=== PATIENT | female | born 1965 | race Caucasian/White ===

== ENCOUNTER 2019-10-03 13:42 | Outpatient (CLI) | payer OTHER, SELFPAY | END 2019-10-03 13:43 | disposition home or self-care (01) | LOC: ANHAUDIO 13:43 | DX: H90.3 Sensorineural hearing loss, bilateral (principal) | CPT/HCPCS: 92557; 92567 ==

== ENCOUNTER 2020-01-19 16:08 | Emergency (ER) | payer OTHER, SELFPAY ==
--- NOTE | ~2020-01-19 | XR_ITS ---
EXAMINATION: XR knee LT min 4V DATE: 01/19/2020 18:45 INDICATION: Left knee pain TECHNIQUE: Four views of the left knee were obtained. COMPARISON: None. FINDINGS: Alignment is normal. No fracture or osteochondral lesion. There is mild tricompartmental os teoarthritis characterized by tiny marginal osteophytes. No joint effusion/synovitis. Soft tissues a re unremarkable. IMPRESSION: 1. No acute osseous abnormality. Reviewed, dictated and finalized at location A.
[2020-01-19 16:21] VITALS: BP 116/91; PULSE 70; RESP 16; TEMP 36.8; O2SAT 96
--- NOTE | 2020-01-19 17:22 | ED.GENADULT ---
HPI - General Adult General Chief complaint: Extremity Injury, Lower Stated complaint: left leg swelling and pain Time Seen by Provider: 01/19/20 16:39 Source: patient Mode of arrival: ambulatory Limitations: no limitations History of Present Illness HPI narrative: 54-year-old female patient presents to the [facility] with complaints of left leg pain and swelling for the past week and a half. Patient states that 3 weeks ago and she did see her primary doctor and they did an x-ray of her knee and he stated that it was most likely arthritis that was causing the pain. Primary doctor gave her a brace and encouraged her to treated as appropriately for arthritis. Patient states she does take hydrocodone daily for neuropathy and other chronic pain which she states that has not helped with the pain at all. Patient states that she noticed that the swelling to the left lower leg is increasing and states that it hurts worse when trying to stand or walk on it. Patient states most of her pain is the calf area of the left leg. Patient denies any history of DVTs. Patient states she is currently not on blood thinners. Patient does currently smoke. Related Data Home Medications Medication Instructions Recorded Confirmed hydrocodone 10 mg-acetaminophen 1 tablet PO Q6H PRN 07/03/19 325 mg tablet citalopram 40 mg tablet 40 mg PO DAILY 07/11/19 aspirin 81 mg PO DAILY 01/19/20 lamotrigine 100 mg PO HS 01/19/20 pregabalin 150 mg PO BID 01/19/20 tizanidine 2 mg PO BID 01/19/20 zolpidem 10 mg PO HS 01/19/20 Allergies Allergy/AdvReac Type Severity Reaction Status Date / Time morphine Allergy Unknown headache Verified 01/19/20 16:29 Review of Systems Review of Systems: Narrative: CONSTITUTIONAL: Denies fever, chills, or sweats. EYES: Denies visual changes, redness, or discharge. ENT: Denies rhinorrhea, congestion, sore throat, or otalgia. CARDIOVASCULAR: Denies chest pain, palpitations, or edema. RESPIRATORY: Denies cough or dyspnea. GASTROINTESTINAL: Denies abdominal pain, nausea, vomiting, or diarrhea. GENITOURINARY: Denies dysuria or hematuria. SKIN: Denies rash or itching. MUSCULOSKELETAL: Denies back pain, joint pain, or myalgia. Positive left lower extremity pain x1.5 weeks NEUROLOGIC: Denies headache, numbness, or weakness. PSYCHIATRIC: Denies anxiety or depression. [facility] Past Medical History Medical History (Updated 01/19/20 @ 19:44 by BELLO Lang) Anxiety Arthritis Bronchitis COPD (chronic obstructive pulmonary disease) Depression Diabetes GERD (gastroesophageal reflux disease) Peripheral neuropathy Shingles TIA (transient ischemic attack) Surgical History Surgical History (Updated 01/19/20 @ 17:24 by BELLO Lang) H/O tubal ligation History of appendectomy History of cholecystectomy Hx of tonsillectomy Family History Family History Father Hypertension Mother Family history of malignant melanoma Other Diabetes mellitus Family history of kidney disease Family history of tuberculosis Social History Social History Smoking status: Current every day smoker Alcohol intake: current Gender identity (if verbalized by the patient): Female Comments At the time of my signature I agree with nursing past medical history, surgical, social, and family history. There is no relevant family history pertinent to the presenting complaint. Exam Narrative: Exam Narrative: GENERAL: Well-appearing, well-nourished, and in no acute distress. HEAD: Normocephalic, atraumatic. EYES: PERRLA and EOMI. ENT: Nares clear, no rhinorrhea or epistaxis. Mucous membranes moist. NECK: Supple. No lymphadenopathy CHEST: Clear to auscultation. No respiratory distress. HEART: Regular rate and rhythm. No murmur heard. Normal peripheral pulses. ABDOMEN: Soft, nontender, nondistended, normal active bowel
[2020-01-19 17:45] LABS: Basophils Absolute Auto 0.1 K/mm3 (0.0-0.1); Basophils Percent Auto 0.4 % (0.2-1.2); Eosinophils Absolute Auto 0.1 K/mm3 (0-0.3); Eosinophils Percent Auto 0.7 % (0-4.4); Hematocrit 45.4 % (37.0-47.0); Hemoglobin 14.8 g/dL (12.0-15.0); Immature Granulocyte Absolute 0.09 K/mm3 (0.00-0.031); Immature Granulocyte Percent A 0.5 % (0-0.5); Lymphocytes Absolute Auto 4.76 K/mm3 (0.9-3.2); Mean Corpuscular HGB Conc 32.6 g/dl (32-36); Mean Corpuscular Hemoglobin 32.7 pg (26-34); Mean Corpuscular Volume 100.4 fl (80-100); Mean Platelet Volume 9.9 fl (7.4-10.4); Monocytes Absolute Auto 0.9 K/mm3 (0.1-0.6); Monocytes Percent Auto 5.2 % (2.6-8.5); Neutrophils Absolute Auto 11.7 K/mm3 (1.3-6.7); Neutrophils Percent Auto 66.2 % (45.5-73.1); Platelet Count Result 276 k/mm3 (150-375); Red Blood Count 4.52 M/mm3 (4.2-5.4); Red Cell Distribution Width 14.1 % (11.5-14.5); White Blood Count 17.6 K/mm3 (4.5-10.0)
[2020-01-19 17:53] LABS: Prothrombin Time 12.5 Seconds (11.1-14.7)
[2020-01-19 17:54] LABS: Partial Thromboplastin Time 27.4 SECONDS (22.3-36.8)
[2020-01-19 17:56] LABS: Alanine Aminotransferase 15 U/L (4-35); Albumin Level 4.1 g/dL (3.5-5.1); Alkaline Phosphatase 70 U/L (38-126); Aspartate Amino Transferase 20 U/L (14-36); Bilirubin,Total < 0.1 mg/dL (0.2-1.3); Blood Urea Nitrogen 24 mg/dL (7-17); Calcium 8.7 mg/dL (8.4-10.2); Carbon Dioxide 30 mmol/L (22-30); Chloride 102 mmol/L (98-107); Estimated CRCL calculation 89 ml/min; Estimated Glomerular Filt Rate > 60; Glucose 102 mg/dL (65-105); Potassium 4.4 mmol/L (3.4-5.0); Sodium 136 mmol/L (137-145)
[2020-01-19 18:28] LABS: D Dimer 0.79 ug/mL (<0.48)
[2020-01-19 18:53] LABS: Lactic Acid 0.9 mmol/L (0.7-2.1)
[2020-01-19] MEDS: SODIUM CHLORIDE 0.9% IV 1,000 ML 999 ML IV CONT (19:02)
[2020-01-19 19:15] LABS: CRP 1.8 mg/dL (<1.0)
[2020-01-19 19:31] LABS: Erythrocyte Sedimentation Rate 15 mm/hr (0-20)
[2020-01-19] MEDS: ENOXAPARIN 100 MG/ML SYRINGE 93 MG SUB-Q (20:28)
[2020-01-19 20:29] VITALS: BP 125/75; PULSE 60; RESP 14; O2SAT 100
[2020-01-19 20:59] VITALS: BP 125/75; PULSE 60; RESP 14; O2SAT 100
== END 2020-01-19 20:28 | disposition home or self-care (01) ==
PROVIDERS: Emergency Provider Nurse Practitioner Family
DX: M79.605 Pain in left leg (principal); F41.9 Anxiety disorder, unspecified; M19.90 Unspecified osteoarthritis, unspecified site; J44.9 Chronic obstructive pulmonary disease, unspecified; F32.9 Major depressive disorder, single episode, unspecified; K21.9 Gastro-esophageal reflux disease without esophagitis; E11.42 Type 2 diabetes mellitus with diabetic polyneuropathy; Z86.73 Personal history of transient ischemic attack (TIA), and cerebral infarction without residual deficits; Z79.82 Long term (current) use of aspirin; F17.200 Nicotine dependence, unspecified, uncomplicated; R03.0 Elevated blood-pressure reading, without diagnosis of hypertension
CPT/HCPCS: 36415; 73564; 80053; 83605; 85025; 85380; 85610; 85652; 85730; 86140; 87040; 96361; 96372; 96374; 99284; J1650; J3010; J7030

== ENCOUNTER 2020-01-20 07:11 | Outpatient (CLI) | payer OTHER, SELFPAY ==
--- NOTE | ~2020-01-20 | US_ITS ---
EXAMINATION: US venous doppler [facility] EXAM DATE: 01/20/2020 07:59 INDICATION: Left leg pain and swelling. TECHNIQUE: Multiple grayscale, color flow and Doppler images of the left lower extremity deep venous system were obtained and reviewed. Comparison is made to prior examination from 08/10/2018. FINDINGS: The left common femoral, femoral and profunda veins demonstrate normal color flow, respirat ory variation, augmentation and compressibility. Compressibility, color flow confirmed within the le ft popliteal, posterior tibial, peroneal, and greater saphenous veins. Complex cystic structure in p opliteal fossa probably Pascual's cyst cyst measuring 5.9 x 1.5 x 3.6 cm, with another contiguous conne cted lobulation more distally, similar in size. IMPRESSION: 1. No left lower extremity deep venous thrombosis. 2. Large popliteal fossa complex cystic region probably Pascual's cyst extending inferiorly to the jatin f. Reviewed, dictated and finalized at location A. IMPRESSION: 1. No left lower extremity deep venous thrombosis. 2. Large popliteal fossa complex cystic region probably Pascual's cyst extending inferiorly to the calf.
== END 2020-01-20 07:12 | disposition home or self-care (01) ==
PROVIDERS: Visit Provider Nurse Practitioner Family
DX: M79.89 Other specified soft tissue disorders (principal)
CPT/HCPCS: 93971

== ENCOUNTER 2020-05-11 00:33 | Inpatient (IN) | payer OTHER, SELFPAY ==
[2020-05-11] VITALS (20 sets, daily range): BP systolic 94–119; BP diastolic 46–76; PULSE 55–85; RESP 14–23; TEMP 36.1–36.9; O2SAT 91–100; BMI 35.2
--- NOTE | ~2020-05-11 | CT_ITS ---
EXAMINATION: Mone Martel DATE: 05/11/2020 02:51 INDICATION: Right chest pain. Right flank pain. TECHNIQUE: Computed tomographic angiography (CTA) of the chest, abdomen, and pelvis was performed wit hout and with 100 mL Omnipaque-350 intravenous contrast. The dose-length product was 1334.18 mGy-cm. Maximum intensity projection 3D-reconstructions of the aorta and other arteries were constructed by carlos houston technologist on a separate workstation. COMPARISON: Chest CT 07/23/2019, CT abdomen and pelvis 09/23/2015 FINDINGS: CHEST CTA: There is air trapping in right middle lobe. There are chronic interstitial opacities in the lungs con sistent with faint groundglass opacities, worst in right upper lobe. There are airspace opacities and centrilobular nodules and tree-in-bud opacities in the right lower lobe. There are airspace opacitie s in right middle lobe. There is a trace right pleural effusion. There is right hilar and mediastinal lymphadenopathy. For example, a right paratracheal node measures 3.1 x 2.0 cm. There is no pulmonary embolus. There is mild aortic atherosclerosis. There is a small sliding hiatal hernia. There is mild thoracic spondylosis. ABDOMEN AND PELVIS CTA: There is a 5 mm hyperenhancing mass in segment VIII of the liver, likely benign. There are changes of cholecystectomy. The spleen is normal. Pancreas divisum is noted. The adrenal glands and left kidney are normal. There is a 3 mm stone in right kidney with mild focal parenchymal volume loss. There are no dilated loops of bowel. The appendix is not visualized. There is mild aortic atherosclerosis. The re is no significant stenosis of the renal arteries or superior mesenteric artery or celiac axis. The re is moderate lumbar spondylosis. IMPRESSION: 1. Right lower lobe and right middle lobe pneumonia. 2. Worsened right hilar and mediastinal lymphadenopathy, likely reactive. 3. Chronic lung disease, which may be chronic hypersensitivity pneumonitis. 4. Mild aortic atherosclerosis. No aneurysm or dissection. 5. No pulmonary embolus. Reviewed, dictated and finalized at location A.
--- NOTE | ~2020-05-11 | CT_ITS ---
EXAMINATION: CT brain wo con EXAM DATE: 05/12/2020 20:19 INDICATION: Confusion. TECHNIQUE: Spiral CT of the head was performed without contrast. Axial, coronal and sagittal images were reviewed. The dose-length product (DLP) for this examination was 605.33 mGy-cm. The exposure w as tailored according to patient size, and iterative reconstruction (ASIR) was used as additional dos e reduction technique. Comparison is made to prior examination from 09/03/2014. FINDINGS: There is no acute intraparenchymal hemorrhage. No evidence of intraparenchymal brain mass lesion. No evidence of acute infarction. There is no mass effect or midline shift. The ventricles are normal in size. There are no extra-axial collections. There are no acute calvarial fractures. T he orbits are unremarkable. Soft tissue is unremarkable. The visualized sinuses and mastoid air to ls are well aerated. IMPRESSION: 1. No acute intracranial findings. Reviewed, dictated and finalized at location A.
--- NOTE | 2020-05-11 00:40 | ED.ABDPAIN ---
HPI - Abdominal Pain General Chief Complaint: Abdominal Pain Stated Complaint: abd pain Source: patient and EMS Mode of arrival: EMS Limitations: no limitations History of Present Illness HPI narrative: Patient is a 54-year-old female who presents for evaluation of abdominal pain. Patient reports pain in her right abdomen radiating to the right flank with associated right-sided chest pain, right-sided neck pain, right-sided back pain. She reports pain over the past 4 days and worsening. Patient reports associated nausea without vomiting. She denies abdominal distention. She does report history of constipation but did have a normal bowel movement yesterday. Patient denies fever, chills. He does report productive cough.she has been having some intermittent shortness of breath. No pleuritic pain. Pain on the right side of the chest is dull, aching in nature. No associated diaphoresis, jaw pain. Patient denies rhinorrhea or congestion. She denies sore throat. Patient is also reporting some urinary incontinence which is new for her. She is denying any dysuria or frequency. States she does not typically have issues with this. Related Data Home Medications Medication Instructions Recorded Confirmed hydrocodone 10 mg-acetaminophen 1 tablet PO Q6H PRN 07/03/19 325 mg tablet citalopram 40 mg tablet 40 mg PO DAILY 07/11/19 aspirin 81 mg PO DAILY 01/19/20 lamotrigine 100 mg PO HS 01/19/20 pregabalin 150 mg PO BID 01/19/20 tizanidine 2 mg PO BID 01/19/20 Allergies Allergy/AdvReac Type Severity Reaction Status Date / Time morphine Allergy Unknown headache Verified 01/19/20 16:29 Review of Systems Review of Systems: Narrative: CONSTITUTIONAL: Denies fever, chills, or sweats. ENT: Denies rhinorrhea, congestion, sore throat, or otalgia. CARDIOVASCULAR: Reports right-sided chest pain RESPIRATORY: Patient reports cough and intermittent shortness of breath GASTROINTESTINAL: Reports right-sided abdominal pain, constipation GENITOURINARY: Denies dysuria or hematuria. Reports urinary incontinence. SKIN: Denies rash or itching. MUSCULOSKELETAL: Reports right-sided back pain and flank pain NEUROLOGIC: Denies headache, numbness, or weakness. [facility] Past Medical History Medical History Anxiety Arthritis Bronchitis COPD (chronic obstructive pulmonary disease) Depression Diabetes GERD (gastroesophageal reflux disease) Peripheral neuropathy Shingles TIA (transient ischemic attack) Surgical History Surgical History H/O tubal ligation History of appendectomy History of cholecystectomy Hx of tonsillectomy Family History Family History Father Hypertension Mother Family history of malignant melanoma Other Diabetes mellitus Family history of kidney disease Family history of tuberculosis Social History Social History Smoking status: Current every day smoker Alcohol intake: current Gender identity (if verbalized by the patient): Female Exam Narrative: Exam Narrative: GENERAL: Awake, alert, tearful HEAD: Normocephalic, atraumatic. EYES: 2+ PERRLA and EOMI. ENT: Nares clear, no rhinorrhea or epistaxis. Mucous membranes moist. NECK: Supple. CHEST: No respiratory distress, breathing even and non labored, right-sided chest wall tenderness, coarse breath sounds bilaterally HEART: Regular rate, sinus rhythm ABDOMEN: Obese, nondistended, tender in the right middle abdomen, positive guarding, nonrigid, right flank tenderness EXTREMITIES: Normal range of motion. No edema. SKIN: Warm, dry, no rash. NEURO:No focal deficits. Alert and oriented x3 Course Vital Signs Vital signs: Vital Signs Temperature 36.9 C 05/11/20 00:33 Pulse Rate 85 05/11/20 00:33 Respiratory Rate 21 H 05/11/20 00
--- NOTE | 2020-05-11 00:42 | ECG_ITS ---
Measurements Intervals [place] Rate: 84 P: 71 PA: 135 QRS: 85 QRSD: 93 T: 62 QT: 354 QTc: 419 Interpretive Statements SINUS RHYTHM BASELINE WANDER- I, II, AVR, AVL, AVF, V2-V3 NORMAL ECG Electronically Signed On 05-11-2020 8:00:19 CDT by Vinicius Wynne D.O.
[2020-05-11 01:25] LABS: Basophils Absolute Auto 0.1 K/mm3 (0.0-0.1); Basophils Percent Auto 0.4 % (0.2-1.2); Eosinophils Absolute Auto 0.2 K/mm3 (0-0.3); Eosinophils Percent Auto 0.9 % (0-4.4); Hematocrit 45.2 % (37.0-47.0); Hemoglobin 14.9 g/dL (12.0-15.0); Immature Granulocyte Absolute 0.11 K/mm3 (0.00-0.031); Immature Granulocyte Percent A 0.6 % (0-0.5); Lymphocytes Absolute Auto 3.75 K/mm3 (0.9-3.2); Lymphocytes Percent Auto 20.6 % (18.3-44.2); Mean Corpuscular Hemoglobin 32.7 pg (26-34); Mean Corpuscular Volume 99.3 fl (80-100); Mean Platelet Volume 9.9 fl (7.4-10.4); Monocytes Absolute Auto 1.4 K/mm3 (0.1-0.6); Monocytes Percent Auto 7.4 % (2.6-8.5); Neutrophils Absolute Auto 12.8 K/mm3 (1.3-6.7); Neutrophils Percent Auto 70.1 % (45.5-73.1); Platelet Count Result 258 k/mm3 (150-375); Red Blood Count 4.55 M/mm3 (4.2-5.4); Red Cell Distribution Width 13.1 % (11.5-14.5); White Blood Count 18.2 K/mm3 (4.5-10.0)
[2020-05-11 01:36] LABS: Alanine Aminotransferase 12 U/L (4-35); Albumin Level 3.9 g/dL (3.5-5.1); Alkaline Phosphatase 78 U/L (38-126); Anion Gap 3 mmol/L (8-16); Aspartate Amino Transferase 17 U/L (14-36); Bilirubin,Total 0.4 mg/dL (0.2-1.3); Blood Urea Nitrogen 12 mg/dL (7-17); Calcium 9.1 mg/dL (8.4-10.2); Carbon Dioxide 32 mmol/L (22-30); Chloride 103 mmol/L (98-107); Estimated CRCL calculation 105 ml/min; Estimated Glomerular Filt Rate > 60; Glucose 99 mg/dL (65-105); Lipase 32 U/L (23-300); Potassium 3.8 mmol/L (3.4-5.0); Sodium 138 mmol/L (137-145)
[2020-05-11] MEDS: HYDROmorphone HCL INJ (*CRX) 1 MG/ML SYR 0.5 MG IV PUSH (02:19)
[2020-05-11] MEDS: ONDANSETRON INJ 4 MG/2 ML VIAL IV PUSH (02:19)
[2020-05-11] MEDS: SODIUM CHLORIDE 0.9% IV 1,000 ML 999 ML IV CONT ×2 (02:21→03:00)
[2020-05-11 02:35] LABS: INR 1.1; Prothrombin Time 13.5 Seconds (11.1-14.7)
[2020-05-11 02:40] LABS: Troponin I < 0.012 ng/mL (0.000-0.034)
--- NOTE | 2020-05-11 02:41 | PC.NURSE ---
Patient to radiology
[2020-05-11 02:55] LABS: Add Urine Microscopic? YES; Appearance Urine Clear (Clear); Bilirubin Urine Negative (Negative); Blood Urine 1+ (Negative); Color Urine Straw (Yellow); Glucose Urine UA Negative (Negative); Ketones Urine Negative (Negative); Leukocyte Esterase Ur Negative LEU/UL (Negative); Nitrate Urine Negative (Negative); Protein Urine Negative (Negative); Specific Grav Ur 1.011 (1.001-1.035); Squamous Epithelial Cell Urine Rare /hpf (Few); Urobilinogen Urine Negative mg/dL (<2.0); WBC Urine 0-3 /hpf
[2020-05-11 02:56] LABS: Lactic Acid Reflex 1.1 mmol/L (0.7-2.1)
[2020-05-11 03:37] LABS: Alveolar/Arterial O2 Gradient 34.8 mmHg; Base Excess ABG 0.8 mEq/l (+/-2.0); Carboxyhemoglobin 7.5 % THb (0-2.0); Fractional Inspired Oxygen 21 %; HCO3 ABG 26.8 mEq/l (22.0-26.0); Methemoglobin ABG 0.1 %THb (0-1.5); Oxygen Content ABG 16.8 %vol (16.0-22.0); Oxygen Saturation ABG 88.8 % (95.0-100.0); Oxyhemoglobin 84.3 % THb (90.0-100.0); PO2 ABG 57.5 mmHg (80.0-100.0); PO2 FiO2 Ratio Arterial Blood 2.74 %; Reduced Hemoglobin 8.1 %THb (0-5.0); Total Hemoglobin 14.2 g/dL (12.0-18.0); pH ABG 7.365 (7.350-7.450)
[2020-05-11 03:38] LABS: Device ROOM AIR; Modified Allen's Test Pass; Site Drawn LEFT RADIAL
--- NOTE | 2020-05-11 03:56 | PC.NURSE ---
Patient placed on 2L via NC.
[2020-05-11] MEDS: ASPIRIN 81 MG CHEWABLE TABLET 324 MG PO (04:04)
--- NOTE | 2020-05-11 04:36 | PM.IMHP ---
H&P: HPI History of Present Illness Date/Time: 05/11/20 04:36 Chief complaint: Pneumonia, atypical chest pain Narrative: This is a pleasant 54 year old Diabetic female with known COPD and chronic smoker who presented to the hospital with a complaint of pain of the right side of her body including her right abdomen/chest over the past 4 days and worsening tonight. Associated symptoms include nausea, a productive cough, and shortness of breath. She denies any left sided chest pain. She denies any fever or chills. She also denies any sick contacts. She uses oxygen at night with her CPAP. Routine labs were obtained which demonstrated an elevated WBC of 18,200. ABG demonstrated hypoxemia with a pO2 of 57.5. CTA chest/abd/pelvis demonstrated interval development of nodular airspace consolidations in the right lower lobe and right middle lobe most likely representing pneumonia. The patient was swabbed for coronavirus and treated with antibiotics. Review of Systems Review of Systems: All systems reviewed & are unremarkable except as noted in HPI and below PMFSH Past Medical History Medical History Anxiety Arthritis Bronchitis COPD (chronic obstructive pulmonary disease) Depression Diabetes GERD (gastroesophageal reflux disease) CRISTY (obstructive sleep apnea) Peripheral neuropathy Shingles TIA (transient ischemic attack) Surgical History Surgical History H/O tubal ligation History of appendectomy History of cholecystectomy Hx of tonsillectomy Family History Family History Father Hypertension Mother Family history of malignant melanoma Other Diabetes mellitus Family history of kidney disease Family history of tuberculosis Social History Social History Social History: recently quit smoking since hospitalization Smoking packs per day: 0.5 Smoking cigarettes per day: 10.0 Years smoked: 38 Smoking pack-years: 19.00 Smoking status: Former smoker (quit 5 days ago) Tobacco type: cigarettes Alcohol intake: former Substance use: never Gender identity (if verbalized by the patient): Female Spiritual care concerns: No Meds Home Medications and Allergies Home Medications Medication Instructions Recorded Confirmed Type hydrocodone 10 mg-acetaminophen 1 tablet PO Q6H PRN 07/03/19 05/15/20 History 325 mg tablet albuterol sulfate 0.63 mg/3 mL 0.63 mg INHALATION Q4-6H PRN #90 ml 07/11/19 05/15/20 Rx solution for nebulization citalopram 40 mg tablet 40 mg PO DAILY 07/11/19 05/15/20 History ipratropium bromide 0.02 % 2.5 ml INHALATION Q6H PRN #150 ml 12/13/19 05/15/20 Rx solution for inhalation aspirin 81 mg PO DAILY 01/19/20 05/15/20 History lamotrigine 100 mg PO HS 01/19/20 05/15/20 History pregabalin 150 mg PO BID 01/19/20 05/15/20 History tizanidine 2 mg PO BID 01/19/20 05/15/20 History zolpidem 10 mg tablet 10 mg PO HS 30 Days #30 tablet 03/04/20 05/15/20 Rx alprazolam 0.5 mg PO DAILY PRN 05/11/20 05/15/20 History baclofen 10 mg PO BID 05/11/20 05/15/20 History omeprazole 40 mg PO BID 05/11/20 05/15/20 History levofloxacin 750 mg PO DAILY #30 tablet 05/13/20 05/15/20 Rx Allergies Allergy/AdvReac Type Severity Reaction Status Date / Time morphine Allergy Unknown headache Verified 05/15/20 08:34 Vital Signs Vital Signs - 24 hr 05/11/20 00:33 05/11/20 01:31 05/11/20 02:49 Temperature 36.9 C 36.9 C Pulse Rate 85 78 Respiratory Rate 21 H 22 H Blood Pressure 108/66 102/51 L Pulse Oximetry 100 96 05/11/20 02:51 05/11/20 02:53 05/11/20 03:46 Temperature 36.9 C 36.7 C Pulse Rate 80 73 Respiratory Rate 23 H 19 Blood Pressure 119/69 102/46 L Pulse Oximetry 94 94 Exam Const: General: cooperative, alert, awake and ill appearing Nutritiona
[2020-05-11] MEDS: SODIUM CHLORIDE 0.9% IV 1,000 ML 75 ML IV CONT (05:32)
--- NOTE | 2020-05-11 05:49 | ADMGEN ---
This patient, Sharla Jones, was admitted to Intensive Care Unit-4. Patient/family oriented to hospital policies and general routines including ID bracelet, bed and alarms, visiting hours, pain management, procedures, bathroom and other care routines, personal items, smoking policy, room service/diet, and visiting hours. Information on how to activate the Rapid Response Team has been discussed. Patient/Family are encouraged to report perceived risks to care and to ask questions if they do not understand what they are told or what they should do.
[2020-05-11 05:57] LABS: Troponin I < 0.012 ng/mL (0.000-0.034)
[2020-05-11] MEDS: ALBUTEROL SULFATE (*SP) AEROSOL 1 PUFF 2 PUFF INHALATION ×4 (09:38→20:56)
[2020-05-11 10:38] LABS: Influenza Control Positive
--- NOTE | 2020-05-11 10:45 | PM.IMPN ---
Progress Note: A&P Assessment and Plan (1) Acute respiratory failure with hypoxia: Code(s): J96.01 - Acute respiratory failure with hypoxia Status: Acute Assessment and Plan: On admission, ABG showing PO2 57 on room air. Related to the pneumonia. Patient remains stable on 2 L nasal cannula. Wean oxygen as tolerated. (2) Pneumonia: Qualifiers: Laterality: unspecified laterality Lung location: unspecified part of lung Pneumonia type: due to unspecified organism Qualified Code(s): J18.9 - Pneumonia, unspecified organism Code(s): J18.9 - Pneumonia, unspecified organism Status: Acute Assessment and Plan: CT Chest showing RLL and RML pneumonia with worsened right hilar and mediastinal lymphadenopathy, likely reactive. WBC 18K. Lactic acid normal. Started on Rocephin and Azithromycin. Continue Albuterol. Wean O2 as tolerated. Follow up on blood and sputum cx. (3) Atypical chest pain: Code(s): R07.89 - Other chest pain Status: Acute Assessment and Plan: Likely secondary to pneumonia. Troponin negative. EKG reviewed personally showing no acute findings. Doubt acute coronary syndrome. (4) Suspected 2019 novel coronavirus infection: Code(s): Z20.828 - Contact with and (suspected) exposure to other viral communicable diseases Status: Acute Assessment and Plan: The patient has been swab for Coronavirus. Continue droplet isolation. She was started on Dexamethasone 6 mg IV daily. Continue bronchodilators. Continue supportive care. Stop IV fluids. (5) Diabetes: Qualifiers: Diabetes mellitus complication status: without complication Diabetes mellitus medical terminologist insulin use: without medical terminologist use Diabetes mellitus type: type 2 Qualified Code(s): E11.9 - Type 2 diabetes mellitus without complications Code(s): E11.9 - Type 2 diabetes mellitus without complications Status: Chronic Assessment and Plan: Patient states she had 'pre-diabetes' in the past but does not carry this diagnosis currently. Will continue Accu-Cheks for now since on steroids. Cover with sliding scale insulin coverage. Hypoglycemia protocol available as needed. Check A1c (6) COPD (chronic obstructive pulmonary disease): Qualifiers: COPD type: unspecified COPD Qualified Code(s): J44.9 - Chronic obstructive pulmonary disease, unspecified Code(s): J44.9 - Chronic obstructive pulmonary disease, unspecified Status: Chronic Assessment and Plan: No wheezing but on steroids and bronchodilators. Continue current treatment. (7) ILD (interstitial lung disease): Code(s): J84.9 - Interstitial pulmonary disease, unspecified Status: Acute Assessment and Plan: Patient being followed for ILD and has frequent imaging. Consider pulmonary consult if she does not improve as expected. (8) Peripheral neuropathy: Qualifiers: Peripheral neuropathy type: polyneuropathy, unspecified Qualified Code(s): G62.9 - Polyneuropathy, unspecified Code(s): G62.9 - Polyneuropathy, unspecified Status: Chronic Assessment and Plan: Stable. Continue Lyrica and lamotrigine. (9) CRISTY (obstructive sleep apnea): Code(s): G47.33 - Obstructive sleep apnea (adult) (pediatric) Status: Chronic Assessment and Plan: Patient on CPAP at home. CPAP on hold here as patient is on droplet isolation. Resume when appropriate. (10) Depression: Qualifiers: Depression Type: unspecified Qualified Code(s): F32.9 - Major depressive disorder, single episode, unspecified Code(s): F32.9 - Major depressive disorder, single episode, unspecified Status: Chronic Assessment and Plan: Mood poor. Will resume home Celexa. (11) Tobacco dependence: Code(s): F17.200 - Nicotine dependence, unspecified, uncomplicated
[2020-05-11] MEDS: DEXAMETHASONE SOD PHOS INJ 4 MG/ML VIAL 6 MG IV PUSH (11:46)
[2020-05-11] MEDS: ALPRAZolam (*CRX) 0.5 MG TABLET PO (11:46)
[2020-05-11] MEDS: HYDROcodone/acetaminophen (*CRX) 10-325 MG TABLET 1 TAB PO ×2 (11:47→19:14)
[2020-05-11 12:37] LABS: Glucose Point of Care 98 (65-105)
[2020-05-11] MEDS: ENOXAPARIN 40 MG/0.4 ML SYRINGE SUB-Q (14:14)
[2020-05-11] MEDS: PANTOPRAZOLE 40 MG TABLET PO (17:54)
[2020-05-11] MEDS: INSULIN ASPART (*BKC) 100 UNITS/ML SUB-Q (17:55)
[2020-05-11 17:58] LABS: Glucose Point of Care 208 (65-105)
[2020-05-11] MEDS: lamoTRIgine 100 MG TABLET PO (20:39)
--- NOTE | 2020-05-11 20:52 | PCRCNOTE ---
Pt states she wears CPAP at home. Due to pt pending COVID 19 results, pt unable to go on hospital CPAP at this time. RT encouraged pt to have someone bring home unit in. Pt states she will only use 3L O2 via nasal cannula for tonight. Pt currently sating 96% on RA.
[2020-05-12] VITALS (16 sets, daily range): BP systolic 106–118; BP diastolic 53–74; PULSE 50–79; RESP 15–21; TEMP 35.6–36.9; O2SAT 94–97; BMI 35.7
[2020-05-12] MEDS: HYDROcodone/acetaminophen (*CRX) 10-325 MG TABLET 1 TAB PO ×4 (00:57→21:35)
[2020-05-12 05:04] LABS: Hemoglobin 13.8 g/dL (12.0-15.0); Mean Corpuscular HGB Conc 32.9 g/dl (32-36); Mean Corpuscular Hemoglobin 32.9 pg (26-34); Platelet Count Result 270 k/mm3 (150-375); Red Cell Distribution Width 13.1 % (11.5-14.5)
[2020-05-12 05:08] LABS: Hemoglobin A1C 5.3 % (<5.7)
[2020-05-12 05:12] LABS: Albumin Level 3.6 g/dL (3.5-5.1); Anion Gap 9 mmol/L (8-16); Blood Urea Nitrogen 14 mg/dL (7-17); Calcium 9.1 mg/dL (8.4-10.2); Carbon Dioxide 26 mmol/L (22-30); Chloride 105 mmol/L (98-107); Estimated CRCL calculation 121 ml/min; Estimated Glomerular Filt Rate > 60; Glucose 161 mg/dL (65-105); Magnesium 2.1 mg/dL (1.6-2.3); Phosphorus 4.4 mg/dL (2.5-4.5); Potassium 4.2 mmol/L (3.4-5.0); Sodium 140 mmol/L (137-145)
[2020-05-12] MEDS: ALBUTEROL SULFATE (*SP) AEROSOL 1 PUFF 2 PUFF INHALATION ×3 (07:58→21:07)
[2020-05-12] MEDS: ASPIRIN 81 MG CHEWABLE TABLET PO (08:12)
[2020-05-12] MEDS: PREGABALIN (*CRX) 75 MG CAPSULE 150 MG PO ×2 (08:13→17:00)
[2020-05-12] MEDS: CITALOPRAM HYDROBROMIDE 20 MG TABLET 40 MG PO (08:13)
[2020-05-12] MEDS: BACLOFEN 10 MG TABLET PO ×2 (08:13→17:00)
[2020-05-12] MEDS: PANTOPRAZOLE 40 MG TABLET PO ×2 (08:13→17:00)
[2020-05-12] MEDS: DEXAMETHASONE SOD PHOS INJ 4 MG/ML VIAL 6 MG IV PUSH (08:14)
[2020-05-12 08:22] LABS: Glucose Point of Care 100 (65-105)
[2020-05-12 11:41] LABS: SARS-CoV-2 RNA PCR Negative
--- NOTE | 2020-05-12 12:38 | PM.IMPN ---
Progress Note: A&P Assessment and Plan (1) Confusion: Code(s): R41.0 - Disorientation, unspecified Status: Acute Assessment and Plan: Patient states she is more confused since the onset of symptoms. Proably related to steroids and being in the ICU. Will check CT brain to exclude acute occult CVA. Increase activity. PT/OT (2) Acute respiratory failure with hypoxia: Code(s): J96.01 - Acute respiratory failure with hypoxia Status: Acute Assessment and Plan: On admission, ABG showing PO2 57 on room air. Related to the pneumonia. Patient able to be weaned off oxygen. (3) Pneumonia: Qualifiers: Laterality: unspecified laterality Lung location: unspecified part of lung Pneumonia type: due to unspecified organism Qualified Code(s): J18.9 - Pneumonia, unspecified organism Code(s): J18.9 - Pneumonia, unspecified organism Status: Acute Assessment and Plan: CT Chest showing RLL and RML pneumonia with worsened right hilar and mediastinal lymphadenopathy, likely reactive. Influenza negative. COVID negative. WBC up to 22K felt more likely related to the steroids then worsening PNA. Lactic acid normal. BCx NGTD. Continue on Rocephin and Azithromycin. Continue Albuterol. Stop steroids. Given her hx, will check swallow evaluation. (4) Atypical chest pain: Code(s): R07.89 - Other chest pain Status: Acute Assessment and Plan: Likely secondary to pneumonia. Troponin negative. EKG reviewed personally showing no acute findings. Tele showing no acute findings. Doubt acute coronary syndrome. (5) Suspected 2019 novel coronavirus infection: Code(s): Z20.828 - Contact with and (suspected) exposure to other viral communicable diseases Status: Acute Assessment and Plan: The patient has been swab for Coronavirus and was negative. Stop isolation. Stop Dexamethasone. (6) Diabetes: Qualifiers: Diabetes mellitus complication status: without complication Diabetes mellitus fpc insulin use: without fpc use Diabetes mellitus type: type 2 Qualified Code(s): E11.9 - Type 2 diabetes mellitus without complications Code(s): E11.9 - Type 2 diabetes mellitus without complications Status: Chronic Assessment and Plan: Patient states she had 'pre-diabetes' in the past but does not carry this diagnosis currently. A1c 5.3. Will stop steroids. Will aslo stop sliding scale insulin coverage. (7) COPD (chronic obstructive pulmonary disease): Qualifiers: COPD type: unspecified COPD Qualified Code(s): J44.9 - Chronic obstructive pulmonary disease, unspecified Code(s): J44.9 - Chronic obstructive pulmonary disease, unspecified Status: Chronic Assessment and Plan: No wheezing but on steroids and bronchodilators. Continue bronchodilators but stop steroids. (8) ILD (interstitial lung disease): Code(s): J84.9 - Interstitial pulmonary disease, unspecified Status: Acute Assessment and Plan: Patient being followed for ILD and has frequent imaging. Patietn continues to improve as expected. (9) Peripheral neuropathy: Qualifiers: Peripheral neuropathy type: polyneuropathy, unspecified Qualified Code(s): G62.9 - Polyneuropathy, unspecified Code(s): G62.9 - Polyneuropathy, unspecified Status: Chronic Assessment and Plan: Stable. Continue Lyrica and lamotrigine. (10) CRISTY (obstructive sleep apnea): Code(s): G47.33 - Obstructive sleep apnea (adult) (pediatric) Status: Chronic Assessment and Plan: Patient on CPAP at home. CPAP was on hold here as patient is on droplet isolation. Resume CPAP. (11) Depression: Qualifiers: Depression Type: unspecified Qualified Code(s): F32.9 - Major depressive disorder, single episode, unspecified Code(s): F32.9 - Cecil
[2020-05-12] MEDS: ENOXAPARIN 40 MG/0.4 ML SYRINGE SUB-Q (14:23)
--- NOTE | 2020-05-12 15:28 | PCSTNOTE ---
Please refer to the Bedside Swallow Evaluation in the EMR. Please note, silent aspiration cannot be ruled out at bedside.
--- NOTE | 2020-05-12 16:24 | PC.NURSE ---
This patient, Sharla Jones, was received from ICU on 05/12/20 at 1624. Patient/family oriented to unit policies and routines
--- NOTE | 2020-05-12 16:28 | PC.NURSE ---
This patient, Sharla Jones, was transferred to [facility] on 05/12/20 at 1623. Personal belongings sent with patient. Report given to ANNIE Kuhn. Appropriate documentation sent with patient.
[2020-05-12] MEDS: ALPRAZolam (*CRX) 0.5 MG TABLET PO (17:00)
[2020-05-12] MEDS: lamoTRIgine 100 MG TABLET PO (21:35)
[2020-05-12] MEDS: SIMETHICONE 80 MG TAB.CHEW PO (21:35)
[2020-05-12] MEDS: MELATONIN 3 MG TABLET PO (21:35)
[2020-05-13] VITALS (7 sets, daily range): BP systolic 104–132; BP diastolic 51–80; PULSE 53–73; RESP 14–20; TEMP 36–36.2; O2SAT 93–100
[2020-05-13] MEDS: HYDROcodone/acetaminophen (*CRX) 10-325 MG TABLET 1 TAB PO ×2 (05:03→12:04)
[2020-05-13 05:11] LABS: Hematocrit 41.2 % (37.0-47.0); Hemoglobin 13.5 g/dL (12.0-15.0); Mean Corpuscular HGB Conc 32.8 g/dl (32-36); Mean Corpuscular Hemoglobin 31.9 pg (26-34); Mean Corpuscular Volume 97.4 fl (80-100); Platelet Count Result 288 k/mm3 (150-375); Red Blood Count 4.23 M/mm3 (4.2-5.4); Red Cell Distribution Width 12.9 % (11.5-14.5); White Blood Count 26.3 K/mm3 (4.5-10.0)
[2020-05-13 06:04] LABS: Anion Gap 7 mmol/L (8-16); Blood Urea Nitrogen 15 mg/dL (7-17); Calcium 8.9 mg/dL (8.4-10.2); Carbon Dioxide 27 mmol/L (22-30); Chloride 105 mmol/L (98-107); Estimated CRCL calculation 102 ml/min; Estimated Glomerular Filt Rate > 60; Glucose 106 mg/dL (65-105); Potassium 4.4 mmol/L (3.4-5.0); Sodium 139 mmol/L (137-145)
[2020-05-13] MEDS: ALBUTEROL SULFATE (*SP) AEROSOL 1 PUFF 2 PUFF INHALATION ×2 (08:47→11:45)
[2020-05-13] MEDS: BACLOFEN 10 MG TABLET PO (08:52)
[2020-05-13] MEDS: PANTOPRAZOLE 40 MG TABLET PO (08:52)
[2020-05-13] MEDS: CITALOPRAM HYDROBROMIDE 20 MG TABLET 40 MG PO (08:52)
[2020-05-13] MEDS: PREGABALIN (*CRX) 75 MG CAPSULE 150 MG PO (08:52)
[2020-05-13] MEDS: SIMETHICONE 80 MG TAB.CHEW PO (08:55)
[2020-05-13] MEDS: ASPIRIN 81 MG CHEWABLE TABLET PO (10:01)
--- NOTE | 2020-05-15 18:11 | PM.DS ---
DS: Admitting Diagnosis Admitting Diagnosis Admitting Diagnosis: Pneumonia, atypical chest pain DS: Discharge Diagnosis Discharge Diagnosis (1) Acute respiratory failure with hypoxia: Code(s): J96.01 - Acute respiratory failure with hypoxia Status: Acute Assessment and Plan: On admission, ABG showing PO2 57 on room air. Related to the pneumonia. Patient remains stable on 2 L nasal cannula. Wean oxygen to room air and was satting 97% on room air at discharge (2) Pneumonia: Qualifiers: Laterality: unspecified laterality Lung location: unspecified part of lung Pneumonia type: due to unspecified organism Qualified Code(s): J18.9 - Pneumonia, unspecified organism Code(s): J18.9 - Pneumonia, unspecified organism Status: Acute Assessment and Plan: CT Chest showing RLL and RML pneumonia with worsened right hilar and mediastinal lymphadenopathy, likely reactive. WBC 18K. Lactic acid normal. Started on Rocephin and Azithromycin and received 3 days of IV antibiotics while here and discharged on Levaquin 750 p.o. b.i.d. for 4 more days for total 7 days treatment. blood cultures and sputum cultures were negative she will continue updrafts at home which she has. WBC still elevated at discharge but she was much improved and this is felt secondary to the steroids she had received initially in her hospitalization (3) Atypical chest pain: Code(s): R07.89 - Other chest pain Status: Acute Assessment and Plan: Likely secondary to pneumonia. Troponin negative. EKG reviewed personally showing no acute findings. (4) Suspected 2019 novel coronavirus infection: Code(s): Z20.828 - Contact with and (suspected) exposure to other viral communicable diseases Status: Acute Assessment and Plan: The patient has been swab for Coronavirus And was negative. Continue droplet isolation. She was started on Dexamethasone 6 mg IV daily but discontinued when Covid returned negative (5) Diabetes: Qualifiers: Diabetes mellitus complication status: without complication Diabetes mellitus termite exterminator insulin use: without termite exterminator use Diabetes mellitus type: type 2 Qualified Code(s): E11.9 - Type 2 diabetes mellitus without complications Code(s): E11.9 - Type 2 diabetes mellitus without complications Status: Chronic Assessment and Plan: Patient states she had 'pre-diabetes' in the past but does not carry this diagnosis currently. Will continue Accu-Cheks for now since on steroids. Cover with sliding scale insulin coverage while here A1c 5.3 (6) COPD (chronic obstructive pulmonary disease): Qualifiers: COPD type: unspecified COPD Qualified Code(s): J44.9 - Chronic obstructive pulmonary disease, unspecified Code(s): J44.9 - Chronic obstructive pulmonary disease, unspecified Status: Chronic Assessment and Plan: No wheezing so steroids discontinued when Covid returned negative (7) ILD (interstitial lung disease): Code(s): J84.9 - Interstitial pulmonary disease, unspecified Status: Acute Assessment and Plan: Patient being followed for ILD and has frequent imaging. . (8) Peripheral neuropathy: Qualifiers: Peripheral neuropathy type: polyneuropathy, unspecified Qualified Code(s): G62.9 - Polyneuropathy, unspecified Code(s): G62.9 - Polyneuropathy, unspecified Status: Chronic Assessment and Plan: Stable. Continue Lyrica and lamotrigine. (9) CRISTY (obstructive sleep apnea): Code(s): G47.33 - Obstructive sleep apnea (adult) (pediatric) Status: Chronic Assessment and Plan: Patient on CPAP at home. and continue. (10) Depression: Qualifiers: Depression Type: unspecified Qualified Code(s): F32.9 - Major depressive disorder, single episode, unspecified Code(s): F32.9 - Major d
== END 2020-05-13 13:48 | disposition home or self-care (01) | DRG 139 ==
LOC: ANHED 04:01 → ANHICU 04:55 → ANH2MED 05-12 16:37
PROVIDERS: Internal Medicine; Admitting Provider Family Medicine; Emergency Provider Emergency Medicine; PCP Nurse Practitioner Adult Health; Visit Provider Internal Medicine
DX: J18.9 Pneumonia, unspecified organism (principal); J96.01 Acute respiratory failure with hypoxia; Z20.828 Contact with and (suspected) exposure to other viral communicable diseases; J44.0 Chronic obstructive pulmonary disease with (acute) lower respiratory infection; F41.8 Other specified anxiety disorders; E11.42 Type 2 diabetes mellitus with diabetic polyneuropathy; G47.33 Obstructive sleep apnea (adult) (pediatric); M19.90 Unspecified osteoarthritis, unspecified site; R32 Unspecified urinary incontinence; F17.210 Nicotine dependence, cigarettes, uncomplicated; E66.01 Morbid (severe) obesity due to excess calories; K21.9 Gastro-esophageal reflux disease without esophagitis; Z86.73 Personal history of transient ischemic attack (TIA), and cerebral infarction without residual deficits; Z90.49 Acquired absence of other specified parts of digestive tract; Z68.35 Body mass index [BMI] 35.0-35.9, adult
CPT/HCPCS: 36415; 36600; 70450; 71275; 74174; 80048; 80053; 80069; 81001; 82375; 82805; 83036; 83050; 83605; 83690; 83735; 84484; 85025; 85027; 85610; 85730; 86850; 86900; 86901; 87040; 87070; 87205; 87635; 87804; 92610; 93005; 94640; 96361; 96365; 96366; 96367; 96372; 96374; 96375; 97165; 99285; A9270; C9803; G0378; G0379; J0131; J0456; J0696; J1100; J1170; J1650; J1815; J2405; J7030; Q9967; U0003

== ENCOUNTER 2020-07-07 21:43 | Inpatient (IN) | payer OTHER, SELFPAY ==
--- NOTE | ~2020-07-07 | CT_ITS ---
EXAMINATION: CTA chest PE protocol DATE: 07/08/2020 00:48 INDICATION: Dyspnea. TECHNIQUE: Computed tomography angiography (CTA) of the chest was performed with 100 mL Omnipaque-350 intravenous contrast timed to evaluate the pulmonary arteries. Coronal maximum intensity projection 3D-reconstructions were created by the technologist. Automated exposure control and iterative reconst ruction technique were employed. The dose-length product was 672.73 mGy-cm. COMPARISON: Chest CT 05/11/2020 FINDINGS: There is a 2.1 cm nodule in right middle lobe, worsened from 1.5 cm on 05/11/2020. There is air trapping in lateral segment right middle lobe. There is bulky right hilar and mediastinal lympha denopathy. There is a cluster of nodules in basilar right lower lobe. There is widespread smooth sept al thickening in the lungs. There are tree-in-bud opacities in all lobes, worse in the upper lobes. T here are groundglass opacities in right upper lobe and right middle lobe. No pleural effusion. The he art size is normal. No pericardial effusion. The right hilar lymphadenopathy exerts mass effect on th e pulmonary arteries and left atrium of the heart. There is no pulmonary embolus. There are changes o f cholecystectomy. There is a small sliding hiatal hernia. There is mild thoracic spondylosis. There is mild chronic anterior wedging of T11 vertebral body. IMPRESSION: 1. No pulmonary embolus. 2. Worsened right middle lobe nodule suspicious for primary malignancy. Worsened bulky right hilar an d mediastinal lymphadenopathy, consistent with metastatic disease. Worsened cluster of nodules in bas ilar right lower lobe, which may be infection or metastatic disease. Bronchoscopy is recommended. 3. Worsened diffuse lung disease, likely a combination of pneumonia and mild pulmonary edema superimp osed on chronic lung disease. Reviewed, dictated and finalized at location A. TION POWER ENGINEER IMPRESSION: 1. No pulmonary embolus. 2. Worsened right middle lobe nodule suspicious for primary malignancy. Worsene d bulky right hilar and mediastinal lymphadenopathy, consistent with metastatic disease. Worsened cluster of nodules in basilar right lower lobe, which may be infection or metastatic disease. Bronchoscopy is recommended. 3. Worsened diffuse lung disease, likely a combination of pneumonia and mild pu lmonary edema superimposed on chronic lung disease.
--- NOTE | ~2020-07-07 | XR_ITS ---
EXAMINATION: XR chest 1V portable EXAM DATE: 07/07/2020 22:51 INDICATION: Headache, body aches, nausea. COPD and asthma. TECHNIQUE: Portable AP frontal chest x-ray was obtained. Comparison is made to prior examination from 03/18/2016. FINDINGS: Mild cardiomegaly. No confluent consolidation, pneumothorax or pleural effusion suspected. There are no osseous abnormalities identified. IMPRESSION: Mild cardiomegaly. Reviewed, dictated and finalized at location A. NIZATIONAL DEVELOPMENT SPECIALIST IMPRESSION: Mild cardiomegaly.
[2020-07-07 21:45] VITALS: BP 130/69; PULSE 81; RESP 20; TEMP 35.9; O2SAT 96
--- NOTE | 2020-07-07 21:53 | ECG_ITS ---
Measurements Intervals [place] Rate: 72 P: 58 HI: 154 QRS: 60 QRSD: 91 T: 36 QT: 380 QTc: 419 Interpretive Statements SINUS RHYTHM BASELINE ARTIFACT- I, II, III, AVR, AVL, AVF BORDERLINE ECG Electronically Signed On 07-08-2020 7:14:35 [employer] by Vinicius Wynne D.O.
[2020-07-07 22:09] LABS: Basophils Absolute Auto 0.1 K/mm3 (0.0-0.1); Basophils Percent Auto 0.4 % (0.2-1.2); Eosinophils Absolute Auto 0.2 K/mm3 (0-0.3); Eosinophils Percent Auto 1.5 % (0-4.4); Hematocrit 42.5 % (37.0-47.0); Hemoglobin 14.1 g/dL (12.0-15.0); Immature Granulocyte Absolute 0.03 K/mm3 (0.00-0.031); Immature Granulocyte Percent A 0.3 % (0-0.5); Lymphocytes Absolute Auto 3.69 K/mm3 (0.9-3.2); Lymphocytes Percent Auto 33.2 % (18.3-44.2); Mean Corpuscular HGB Conc 33.2 g/dl (32-36); Mean Corpuscular Hemoglobin 32.6 pg (26-34); Mean Corpuscular Volume 98.2 fl (80-100); Mean Platelet Volume 9.5 fl (7.4-10.4); Monocytes Absolute Auto 0.7 K/mm3 (0.1-0.6); Monocytes Percent Auto 6.6 % (2.6-8.5); Neutrophils Absolute Auto 6.5 K/mm3 (1.3-6.7); Platelet Count Result 256 k/mm3 (150-375); Red Blood Count 4.33 M/mm3 (4.2-5.4); Red Cell Distribution Width 13.6 % (11.5-14.5); White Blood Count 11.1 K/mm3 (4.5-10.0)
[2020-07-07 22:21] LABS: Anion Gap 4 mmol/L (8-16); Blood Urea Nitrogen 19 mg/dL (7-17); Calcium 8.7 mg/dL (8.4-10.2); Carbon Dioxide 28 mmol/L (22-30); Chloride 107 mmol/L (98-107); Estimated CRCL calculation 80 ml/min; Estimated Glomerular Filt Rate > 60; Glucose 111 mg/dL (65-105); Sodium 139 mmol/L (137-145)
[2020-07-07 22:36] VITALS: O2SAT 93
[2020-07-07 23:12] LABS: D Dimer 0.53 ug/mL (<0.48)
[2020-07-07] MEDS: SODIUM CHLORIDE 0.9% IV 1,000 ML 999 ML IV CONT (23:41)
[2020-07-07] MEDS: methylPREDNISolone SOD SUCC 125 MG VIAL IV PUSH (23:41)
[2020-07-07 23:47] VITALS: BP 95/52; PULSE 81; RESP 16; O2SAT 93
[2020-07-08] VITALS (11 sets, daily range): BP systolic 101–118; BP diastolic 48–85; PULSE 60–87; RESP 14–22; TEMP 36.1–36.8; O2SAT 89–100; BMI 37.6; BMI 36.6
--- NOTE | 2020-07-08 01:14 | ED.GENADULT ---
HPI - General Adult General Chief complaint: Shortness of Breath/Dyspnea Stated complaint: sob / covid symptoms Time Seen by Provider: 07/07/20 22:36 Source: RN notes reviewed History of Present Illness HPI narrative: Patient presents emergency department from home for shortness of breath. Patient states she had progressively worsening shortness of breath over the past 2 to 3 weeks. She states she had pneumonia a month ago and feels that she never recovered. States is been associate with a cough this been nonproductive states she has been using her inhalers at home with minimal relief still has as needed oxygen patient states that she has been around several family members of tested positive for COVID-19 she denies any fevers or chills chest pain abdominal pain nausea vomiting or any other symptoms Related Data Home Medications Medication Instructions Recorded Confirmed hydrocodone 10 mg-acetaminophen 1 tablet PO Q6H PRN 07/03/19 05/15/20 325 mg tablet citalopram 40 mg tablet 40 mg PO DAILY 07/11/19 05/15/20 aspirin 81 mg PO DAILY 01/19/20 05/15/20 lamotrigine 100 mg PO HS 01/19/20 05/15/20 pregabalin 150 mg PO BID 01/19/20 05/15/20 tizanidine 2 mg PO BID 01/19/20 05/15/20 alprazolam 0.5 mg PO DAILY PRN 05/11/20 05/15/20 baclofen 10 mg PO BID 05/11/20 05/15/20 omeprazole 40 mg PO BID 05/11/20 05/15/20 Allergies Allergy/AdvReac Type Severity Reaction Status Date / Time morphine AdvReac Mild headache Verified 07/07/20 21:50 Review of Systems Review of Systems: Narrative: Gen.: Denies fevers or chills ENT: Denies congestion Respiratory: See HPI CV: Denies chest pain or palpitations GI: Denies abdominal pain nausea, emesis or diarrhea Musculoskeletal: Denies back pain or muscle pain Neuro: Denies numbness, tingling, weakness or focal weakness Skin: Denies rash Except as documented, all other systems reviewed and negative PMFSH Past Medical History Medical History Anxiety Arthritis Bronchitis COPD (chronic obstructive pulmonary disease) Depression Diabetes GERD (gastroesophageal reflux disease) CRISTY (obstructive sleep apnea) Peripheral neuropathy Shingles TIA (transient ischemic attack) Surgical History Surgical History H/O tubal ligation History of appendectomy History of cholecystectomy Hx of tonsillectomy Family History Family History Father Hypertension Mother Family history of malignant melanoma Other Diabetes mellitus Family history of kidney disease Family history of tuberculosis Social History Social History Social History: recently quit smoking since hospitalization Smoking packs per day: 0.5 Smoking cigarettes per day: 10.0 Years smoked: 38 Smoking pack-years: 19.00 Smoking status: Former smoker (quit 5 days ago) Tobacco type: cigarettes Alcohol intake: former Substance use: never Gender identity (if verbalized by the patient): Female Spiritual care concerns: No Exam Narrative: Exam Narrative: APPEARANCE: No acute distress, nontoxic, resting in bed EYES: EOMI HEENT: Normocephalic, atraumatic, OMM RESPIRATORY: Mild respiratory stress wheezing throughout the bilateral lung deshpande decreased breath sounds in the bases no rhonchi CARDIOVASCULAR: Regular rate and rhythm without murmurs rubs or gallops. ABDOMINAL: Soft, nontender, nondistended, no rebound or guarding MUSCULOSKELETAl: Moves all extremities. No clubbing, cyanosis or edema. NEURO: Awake and alert. Following commands, speech normal, no focal deficits SKIN:: Warm, dry. No rashes lesions or abrasions PSYCHIATRIC: Normal affect/mood, Course Course Emergency Course: Patient with episodes of desaturation to the upper 80[address] on nasal cannula Discussed with
--- NOTE | 2020-07-08 01:23 | PM.IMHP ---
H&P: HPI History of Present Illness Date/Time: 07/08/20 01:23 Chief complaint: Hypoxia, lung mass, COVID-19 suspected Narrative: Sharla Jones is a 54 year old female with past medical history of COPD, depression, diabetes, GERD, sleep apnea, history of TIA presents ED with complaints of dyspnea. She has COVID-19 exposures with her family diagnosed last week with her 2 children. Her only complaints of dyspnea, no fevers chills or sputum production. She has had persistent pneumonia for past month prior to the COVID 19 exposure. She was hospitalized 05/11-05/13 treated with IV antibiotics and discharged with p.o. Levaquin. She feels that she has never recovered from that pneumonia. She denies any unexpected weight loss, fevers, chills, night sweats. She reports family history of cancer her mom 3 different types of cancer none of which being lung. Father is in good health. In the ED: Patient presented hypoxia, she has COVID swab with recent COVID-19 exposures. Labs stable, CTA showed new lung mass. Patient admitted for acute respiratory failure with increased work of breathing and new lung cancer. Review of Systems Review of Systems: Narrative: Constitutional: No Fever, No Chills, No Night Sweats, No Fatigue, No Malaise. No unexpected weight loss. ENT/Mouth: No Hearing Changes, No Ear Pain, No Nasal Congestion, No Sinus Pain, No Hoarseness, No sore throat, No Rhinorrhea, No Swallowing Difficulty Eyes: No Eye Pain, No Redness, No Vision Changes Cardiovascular: No Chest Pain, No Palpitations, No Dyspnea on Exertion, No Orthopnea, No Claudication, No Edema Respiratory: No Cough, No Sputum, No Wheezing, No Shortness of Breath Gastrointestinal: No Nausea, No Vomiting, No Diarrhea, No Constipation, No Abdominal Pain, No Heartburn, No Hematochezia, No Melena Genitourinary: No Dysuria, No Urinary Frequency, No Hematuria, No Urinary Incontinence, No Urgency Musculoskeletal: No Arthralgias, No Myalgias, No Joint Swelling, No Joint Stiffness, No Back Pain Skin: No Skin Lesions, No Pruritis, No Hair Changes Neuro: No Weakness, No Numbness, No Paresthesias, No Loss of Consciousness, No Syncope, No Dizziness, No Headache Psych: No Anxiety/Panic, No Depression, No Insomnia Heme: No Bruising, No Bleeding Lymph: No Adenopathy Endocrine: No Polyuria, No Polydipsia, No Temperature Intolerance [facility] Past Medical History Medical History Anxiety Arthritis Bronchitis COPD (chronic obstructive pulmonary disease) Depression Diabetes GERD (gastroesophageal reflux disease) CRISTY (obstructive sleep apnea) Peripheral neuropathy Shingles TIA (transient ischemic attack) Surgical History Surgical History H/O tubal ligation History of appendectomy History of cholecystectomy Hx of tonsillectomy Family History Family History Father Hypertension Mother Family history of malignant melanoma Other Diabetes mellitus Family history of kidney disease Family history of tuberculosis Social History Social History Social History: recently quit smoking since hospitalization Smoking packs per day: 1 Smoking cigarettes per day: 20.0 Years smoked: 36 Smoking pack-years: 36.00 Smoking status: Former smoker Tobacco type: cigarettes Smoking end date: 05/25/20 Alcohol intake: never Substance use: never Gender identity (if verbalized by the patient): Female Spiritual care concerns: No Meds Home Medications and Allergies Home Medications Medication Instructions Recorded Confirmed Type hydrocodone 10 mg-acetaminophen 1 tablet PO Q6H PRN 07/03/19 07/08/20 History 325 mg tablet albuterol sulfate 0.63 mg/3 mL 0.63 mg INHALATION Q4-6H PRN #90 ml 07/11/19 07/08/20 Rx solution for nebuliza
--- NOTE | 2020-07-08 01:50 | PC.NURSE ---
Patient ambulated without needing assistance. O2 levels while ambulating ranged from 90%-93%. Per EDP Celia place patient on 2L via NC.
--- NOTE | 2020-07-08 03:33 | ADMGEN ---
This patient, Sharla Jones, was admitted to [facility] Surg Room 328-01. Patient/family oriented to hospital policies and general routines including ID bracelet, bed and alarms, visiting hours, pain management, procedures, bathroom and other care routines, personal items, smoking policy, room service/diet, and visiting hours. Information on how to activate the Rapid Response Team has been discussed. Patient/Family are encouraged to report perceived risks to care and to ask questions if they do not understand what they are told or what they should do.
[2020-07-08] MEDS: HYDROcodone/acetaminophen (*CRX) 10-325 MG TABLET 1 TAB PO ×4 (05:14→23:49)
[2020-07-08] MEDS: methylPREDNISolone SOD SUCC 125 MG VIAL 60 MG IV PUSH ×2 (05:22→20:45)
[2020-07-08] MEDS: ZOLPIDEM TARTRATE (*CRX) 5 MG TABLET 10 MG PO ×2 (06:12→20:46)
[2020-07-08] MEDS: ALBUTEROL SULFATE (*SP) AEROSOL 1 PUFF 2 PUFF INHALATION ×2 (08:47→20:47)
[2020-07-08 08:54] LABS: Hematocrit 41.5 % (37.0-47.0); Hemoglobin 13.6 g/dL (12.0-15.0); Mean Corpuscular HGB Conc 32.8 g/dl (32-36); Mean Corpuscular Hemoglobin 32.1 pg (26-34); Mean Corpuscular Volume 97.9 fl (80-100); Mean Platelet Volume 9.6 fl (7.4-10.4); Platelet Count Result 236 k/mm3 (150-375); Red Blood Count 4.24 M/mm3 (4.2-5.4); Red Cell Distribution Width 13.4 % (11.5-14.5); White Blood Count 9.9 K/mm3 (4.5-10.0)
[2020-07-08 09:08] LABS: Alanine Aminotransferase 15 U/L (4-35); Albumin Level 3.7 g/dL (3.5-5.1); Alkaline Phosphatase 60 U/L (38-126); Anion Gap 3 mmol/L (8-16); Aspartate Amino Transferase 22 U/L (14-36); Bilirubin,Total 0.3 mg/dL (0.2-1.3); Blood Urea Nitrogen 13 mg/dL (7-17); Calcium 8.7 mg/dL (8.4-10.2); Carbon Dioxide 24 mmol/L (22-30); Chloride 105 mmol/L (98-107); Estimated CRCL calculation 123 ml/min; Estimated Glomerular Filt Rate > 60; Glucose 151 mg/dL (65-105); Magnesium 2.1 mg/dL (1.6-2.3); Potassium 4.6 mmol/L (3.4-5.0); Sodium 132 mmol/L (137-145)
[2020-07-08] MEDS: ENOXAPARIN 40 MG/0.4 ML SYRINGE SUB-Q (11:04)
--- NOTE | 2020-07-08 13:11 | PM.IMPN ---
Progress Note: A&P Assessment and Plan (1) Acute respiratory failure with hypoxia: Code(s): J96.01 - Acute respiratory failure with hypoxia Status: Acute Assessment and Plan: Patient was on 2 L oxygen but has been weaned to 1 L by time of visit. Likely multifactorial; possibly due to COPD exacerbation vs COVID pneumonia vs possible lung cancer or combination thereof. Patient had been treated for pneumonia for past month with antibiotics with no improvement. She states her symptoms started prior to the positive COVID-19 diagnoses of her family members a week ago. continue supportive care to keep oxygen saturation greater 90% Wean O2 as tolerated Likely home O2 eval prior to discharge (2) Suspected 2019-nCoV infection: Code(s): Z20.828 - Contact with and (suspected) exposure to other viral communicable diseases Status: Acute Assessment and Plan: Checking COVID-19 07/08/2020, recent exposures two family members positive last week Will continue supportive care pending covid results Consider Remdesivir if still hypoxic Will consider switching to Dexamethasone if COVID positive Continue with Nebs, tylenol as needed, albuterol inhaler, IS Monitor (3) Lung mass: Code(s): R91.8 - Other nonspecific abnormal finding of lung field Status: Acute Assessment and Plan: New finding on CT scan. Unfortunately EBUS likely not possible here at this facility. Large right hilar mass 6.7 x 6.4 cm insinuate that narrows the adjacent bronchi in vasculature concerning for neoplasm. Pulmonary nodules concerning for metastatic disease in right middle lobe lower lobe. Significant smoking history likely cause. Previous CT chest in April 2020 patient had hilar and mediastinal lymphadenopathy thought to be likely reactive and what was thought to be a paratracheal lymph node 3.1 x 2.0 cm. Will attempt to contact [facility] for possible outpatient referral for biopsy Consider Onc referral/consult (4) COPD (chronic obstructive pulmonary disease): Qualifiers: COPD type: unspecified COPD Qualified Code(s): J44.9 - Chronic obstructive pulmonary disease, unspecified Code(s): J44.9 - Chronic obstructive pulmonary disease, unspecified Status: Chronic Assessment and Plan: Slight exp wheeze on exam. Will treat as COPD exacerbation with wheezing and increased oxygen demand. No fevers or sputum production or leukocytosis. Will hold off antibiotics. May have underlying trigger viral pneumonia. Questionable history of ILD? IV Solu-Medrol 60 mg q 12 hours for now; consider switching to dexamethasone pending Covid results DuoNeb q.6 hours Monitor for improvement Additional Plan # other chronic conditions anxiety: Celexa; will do ativan Q6 prn given increased anxiety during stay; hold on home xanax muscle spasm: Baclofen, tizanidine peripheral neuropathy: Hydrocodone, Lyrica, Lamictal insomnia: Melatonin, Ambien holding aspirin for lung biopsy was prediabetic before: A1c 5.3 on 05/13/2020 CRISTY: Continue home CPAP Subjective Date/time seen: 07/08/20 13:11 Interval history: Patient is a 54 yo F with history of COPD, depression, diabetes, GERD, sleep apnea, history of TIA who is seen in follow up for acute respiratory failure with hypoxia likely secondary to COPD exacerbation vs COVID or combination thereof. Patient states she is very anxious today, but has improved since yesterday. She is wishing to be discharged as soon as possible. She notes her breathing has somewhat improved but is still worsened with exertion. She notes chest pain she associates with cough. She also noted some vague abdominal discomfort and nausea. She has a headache and neck pain that has been persistent since her last hospitalization. No other complain
[2020-07-08] MEDS: LORazepam (*CRX) 0.5 MG TABLET PO ×2 (13:33→20:46)
[2020-07-08] MEDS: AZITHROMYCIN 250 MG TABLET 500 MG PO (17:00)
[2020-07-08] MEDS: lamoTRIgine 100 MG TABLET PO (17:01)
[2020-07-08] MEDS: CITALOPRAM HYDROBROMIDE 20 MG TABLET 40 MG PO (17:01)
[2020-07-08] MEDS: MELATONIN 3 MG TABLET PO (20:46)
[2020-07-08 22:42] LABS: SARS-CoV-2 RNA PCR Negative
[2020-07-09] MEDS: LORazepam (*CRX) 0.5 MG TABLET PO (03:01)
[2020-07-09] MEDS: ALBUTEROL SULFATE (*SP) AEROSOL 1 PUFF 2 PUFF INHALATION ×2 (03:01→06:44)
[2020-07-09] MEDS: TIZANIDINE HCL 2 MG TABLET PO ×2 (03:48→08:09)
[2020-07-09 05:00] VITALS: BP 110/60; PULSE 57; RESP 16; TEMP 36.9; O2SAT 96
[2020-07-09] MEDS: HYDROcodone/acetaminophen (*CRX) 10-325 MG TABLET 1 TAB PO (05:39)
[2020-07-09 06:27] LABS: Basophils Percent Auto 0.1 % (0.2-1.2); Hematocrit 38.8 % (37.0-47.0); Hemoglobin 12.6 g/dL (12.0-15.0); Immature Granulocyte Absolute 0.13 K/mm3 (0.00-0.031); Immature Granulocyte Percent A 0.7 % (0-0.5); Lymphocytes Absolute Auto 2.06 K/mm3 (0.9-3.2); Lymphocytes Percent Auto 10.4 % (18.3-44.2); Mean Corpuscular HGB Conc 32.5 g/dl (32-36); Mean Corpuscular Hemoglobin 31.3 pg (26-34); Mean Corpuscular Volume 96.3 fl (80-100); Mean Platelet Volume 9.8 fl (7.4-10.4); Monocytes Absolute Auto 0.8 K/mm3 (0.1-0.6); Neutrophils Absolute Auto 16.7 K/mm3 (1.3-6.7); Neutrophils Percent Auto 84.8 % (45.5-73.1); Platelet Count Result 251 k/mm3 (150-375); Red Blood Count 4.03 M/mm3 (4.2-5.4); Red Cell Distribution Width 13.3 % (11.5-14.5); White Blood Count 19.7 K/mm3 (4.5-10.0)
[2020-07-09 06:40] LABS: Anion Gap 5 mmol/L (8-16); Blood Urea Nitrogen 14 mg/dL (7-17); Calcium 8.7 mg/dL (8.4-10.2); Carbon Dioxide 28 mmol/L (22-30); Chloride 104 mmol/L (98-107); Estimated CRCL calculation 123 ml/min; Estimated Glomerular Filt Rate > 60; Glucose 143 mg/dL (65-105); Magnesium 2.1 mg/dL (1.6-2.3); Potassium 4.2 mmol/L (3.4-5.0); Sodium 137 mmol/L (137-145)
[2020-07-09] MEDS: methylPREDNISolone SOD SUCC 125 MG VIAL 60 MG IV PUSH (08:08)
--- NOTE | 2020-07-09 08:24 | PM.DS ---
DS: Admitting Diagnosis Admitting Diagnosis Admitting Diagnosis: acute respiratory failure with hypoxia, COVID PUI, COPD exacerbation DS: Discharge Diagnosis Discharge Diagnosis (1) Acute respiratory failure with hypoxia: Code(s): J96.01 - Acute respiratory failure with hypoxia Status: Acute Assessment and Plan: Patient was on 2 L oxygen but has been weaned to RA since 07/08 pm. Likely multifactorial; possibly due to COPD exacerbation vs possible lung cancer or combination thereof. Patient had been treated for pneumonia for past month with antibiotics with little improvement in her symptoms. She states her symptoms started prior to the positive COVID-19 diagnoses of her family members a week ago. She was given 1 dose azithro yesterday, but this was switched to Levaquin today given her recent abx use. Home O2 eval prior to discharge; no O2 requirements per eval Recommended monitoring O2 sat at home with pulse ox F/u with Roll Over Press Operator (2) Suspected 2019-nCoV infection: Code(s): Z20.828 - Contact with and (suspected) exposure to other viral communicable diseases Status: Ruled-out Assessment and Plan: Checking COVID-19 07/08/2020, this was negative. Recent exposures two family members positive last week F/u with PCP and Roll Over Press Operator (3) Lung mass: Code(s): R91.8 - Other nonspecific abnormal finding of lung field Status: Acute Assessment and Plan: New finding on CT scan. Unfortunately EBUS likely not possible here at this facility. Large right hilar mass 6.7 x 6.4 cm insinuate that narrows the adjacent bronchi in vasculature concerning for neoplasm. Pulmonary nodules concerning for metastatic disease in right middle lobe lower lobe. Significant smoking history likely cause. Previous CT chest in April 2020 patient had hilar and mediastinal lymphadenopathy thought to be likely reactive and what was thought to be a paratracheal lymph node 3.1 x 2.0 cm. Discussed case with Roll Over Press Operator, Memo Parsons who will follow up with patient after discharge to set up for EBUS as outpatient (4) COPD (chronic obstructive pulmonary disease): Qualifiers: COPD type: unspecified COPD Qualified Code(s): J44.9 - Chronic obstructive pulmonary disease, unspecified Code(s): J44.9 - Chronic obstructive pulmonary disease, unspecified Status: Chronic Assessment and Plan: Slight exp wheeze on exam again today, with slight improvement. Will treat as COPD exacerbation with wheezing and increased oxygen demand. No fevers or sputum production. Leukocytosis partly due to steroid therapy. Patient given azithro yesterday evening but this switched to Levaquin today given her recent hospitalization/abx use in 04/2020. Questionable history of ILD? IV Solu-Medrol 60 mg during stay; this was weaned during stay Will do prednisone taper after discharge Will do Levaquin for 5 days total. Continue home meds F/u with Roll Over Press Operator after discharge DS: Summary Hospital Course Reason for hospitalization: Acute respiratory failure with hypoxia, COVID PUI, Lung mass Hospital Course: Date of arrival:07/07/20 Date of discharge: 07/09/20 Patient is a 54 year old female with past medical history of COPD, depression, diabetes, GERD, sleep apnea, history of TIA who presented to the ED on 07/07 from home with complaints of dyspnea. She had COVID-19 exposures with her family diagnosed the week prior with her 2 children. While in the ED, patient was swabbed for COVID and placed on isolation. CTA of the chest revealed a worsened right middle lobe nodule suspicious for primary malignancy, as well as, worsened bulky right hilar and miediastinal lymphadenopathy consistent with metastatic disease and worsened cluster of nodules in basilar right lower lobe; a bron
[2020-07-09 10:05] VITALS: PULSE 84; O2SAT 99
[2020-07-09 10:10] VITALS: PULSE 99; O2SAT 95
[2020-07-09 10:20] VITALS: PULSE 86; O2SAT 98
--- NOTE | 2020-07-09 10:39 | PCRCNOTE ---
HOME O2 EVAL COMPLETE, NO REQUIREMENTS
== END 2020-07-09 11:05 | disposition home or self-care (01) | DRG 140 ==
LOC: ANHED 07-08 01:30 → ANH3MEDSUR 07-08 02:04
PROVIDERS: Physician Assistant; Admitting Provider Student in an Organized Health Care Education/Training Program; Emergency Provider Emergency Medicine; PCP Nurse Practitioner Adult Health; Visit Provider Internal Medicine
DX: J44.1 Chronic obstructive pulmonary disease with (acute) exacerbation (principal); J96.01 Acute respiratory failure with hypoxia; E11.42 Type 2 diabetes mellitus with diabetic polyneuropathy; Z20.828 Contact with and (suspected) exposure to other viral communicable diseases; Z23 Encounter for immunization; R91.8 Other nonspecific abnormal finding of lung field; G47.33 Obstructive sleep apnea (adult) (pediatric); G47.00 Insomnia, unspecified; K21.9 Gastro-esophageal reflux disease without esophagitis; M62.838 Other muscle spasm; F41.9 Anxiety disorder, unspecified; Z79.82 Long term (current) use of aspirin; Z79.899 Other long term (current) drug therapy; Z86.73 Personal history of transient ischemic attack (TIA), and cerebral infarction without residual deficits; Z87.891 Personal history of nicotine dependence
CPT/HCPCS: 36415; 71045; 71275; 80048; 80053; 83735; 85025; 85027; 85380; 87635; 90471; 90653; 93005; 94618; 94640; 96361; 96374; 96375; 99285; A9270; C9803; G0008; G0378; G0379; J0131; J1650; J2930; J7030; Q9967; U0003

== ENCOUNTER 2020-08-05 03:07 | Outpatient (CLI) | payer OTHER, SELFPAY ==
[2020-08-05 19:22] LABS: SARS-CoV-2 RNA PCR Positive
== END 2020-08-05 03:08 | disposition home or self-care (01) ==
LOC: ANHCOVIDDT 03:08
PROVIDERS: Visit Provider Surgery
DX: U07.1 COVID-19 (principal)
CPT/HCPCS: C9803; U0003; U0005

== ENCOUNTER 2020-08-05 08:14 | Outpatient (CLI) | payer OTHER, SELFPAY ==
[2020-08-05 08:31] LABS: Basophils Percent Auto 0.3 % (0.2-1.2); Hematocrit 40.3 % (37.0-47.0); Hemoglobin 13.8 g/dL (12.0-15.0); Immature Granulocyte Absolute 0.01 K/mm3 (0.00-0.031); Immature Granulocyte Percent A 0.3 % (0-0.5); Lymphocytes Absolute Auto 1.13 K/mm3 (0.9-3.2); Lymphocytes Percent Auto 34.9 % (18.3-44.2); Mean Corpuscular HGB Conc 34.2 g/dl (32-36); Mean Corpuscular Volume 93.5 fl (80-100); Monocytes Absolute Auto 0.2 K/mm3 (0.1-0.6); Monocytes Percent Auto 6.8 % (2.6-8.5); Neutrophils Absolute Auto 1.9 K/mm3 (1.3-6.7); Neutrophils Percent Auto 57.7 % (45.5-73.1); Platelet Count Result 78 k/mm3 (150-375); Red Blood Count 4.31 M/mm3 (4.2-5.4); White Blood Count 3.2 K/mm3 (4.5-10.0)
[2020-08-05 08:43] LABS: Prothrombin Time 13.7 Seconds (11.1-14.7)
[2020-08-05 08:44] LABS: Partial Thromboplastin Time 22.2 SECONDS (22.3-36.8)
== END 2020-08-05 08:15 | disposition home or self-care (01) ==
PROVIDERS: PCP Nurse Practitioner Adult Health; Visit Provider Surgery
DX: C34.90 Malignant neoplasm of unspecified part of unspecified bronchus or lung (principal); Z01.812 Encounter for preprocedural laboratory examination
CPT/HCPCS: 36415; 85025; 85610; 85730; C9803; U0003; U0005

== ENCOUNTER 2020-08-12 17:48 | Outpatient (CLI) | payer OTHER, SELFPAY ==
--- NOTE | ~2020-08-12 | US_ITS ---
EXAMINATION: US venous doppler [facility] DATE: 08/12/2020 18:21 INDICATION: Left lower limb swelling TECHNIQUE: Hernadez scale images without and with compression and Doppler images of the left lower extrem ity veins were obtained. COMPARISON: 01/20/2020 FINDINGS: There is thrombosis of the left common femoral vein, profunda femoral vein, femoral vein, p opliteal vein, peroneal trunk, posterior tibial veins, and greater saphenous vein. IMPRESSION: 1. Thrombosis throughout all visualized left lower extremity veins. Reviewed, dictated and finalized at location A. WARE RELEASE MANAGER
== END 2020-08-12 17:49 | disposition home or self-care (01) ==
PROVIDERS: Family Provider Nurse Practitioner Adult Health; PCP Radiology Radiation Oncology; Visit Provider Internal Medicine Medical Oncology
DX: M79.89 Other specified soft tissue disorders (principal); M79.662 Pain in left lower leg; I82.402 Acute embolism and thrombosis of unspecified deep veins of left lower extremity
CPT/HCPCS: 93971

== ENCOUNTER 2020-08-14 12:31 | Outpatient (CLI) | payer OTHER, SELFPAY ==
[2020-08-14 13:00] VITALS: PULSE 89; O2SAT 91
[2020-08-14 13:05] VITALS: PULSE 109; O2SAT 87
[2020-08-14 13:07] VITALS: O2SAT 87
[2020-08-14 13:15] VITALS: PULSE 100; O2SAT 93
[2020-08-14 13:20] VITALS: PULSE 90; O2SAT 92
--- NOTE | 2020-08-14 14:13 | HOMEO2EVAL ---
Home Oxygen Evaluation RC: Home Oxygen (O2) Evaluation Start: 08/14/20 14:10 Freq: Status: Active Protocol: RPE Activity Type Activity Date Activity User E-Sign Co-Sign Detail Recorded Client Recorded Date Recorded By Document 08/14/20 13:00 PARUL [email or web address] 08/14/20 14:13 PARUL Document 08/14/20 13:05 PARUL [email or web address] 08/14/20 14:13 PARUL Document 08/14/20 13:07 PARUL [email or web address] 08/14/20 14:13 PARUL Document 08/14/20 13:15 PARUL [email or web address] 08/14/20 14:13 PARUL Document 08/14/20 13:20 PARUL [email or web address] 08/14/20 14:13 PARUL 08/14/20 08/14/20 08/14/20 13:00 13:05 13:07 Home O2 Evaluation Test Phase Resting Exercise Exercise Oxygen Delivery Room Air Room Air Nasal Cannula Oxygen Flow Rate (L/min) 1 Pulse Oximetry (90-100 %) 91 87 L 87 L Pulse Rate (60-100 beats/min) 89 109 H Ambulation Distance (feet) Home Oxygen Evaluation Comments Treatment Charges O2 Evaluation 08/14/20 08/14/20 13:15 13:20 Home O2 Evaluation Test Phase Exercise Resting Oxygen Delivery Nasal Cannula Room Air Oxygen Flow Rate (L/min) 2 Pulse Oximetry (90-100 %) 93 92 Pulse Rate (60-100 beats/min) 100 90 Ambulation Distance (feet) 150 Home Oxygen Evaluation Comments Pt requires 2 Liters home oxygen with exertion/ activity Treatment Charges
--- NOTE | 2020-08-14 14:13 | PCRCNOTE ---
Faxed eval to Memo Parsons office staff with comment that patient is awaiting call for home O2 set up.
== END 2020-08-14 12:32 | disposition home or self-care (01) ==
LOC: ANHPFT 12:32
PROVIDERS: Family Provider Nurse Practitioner Adult Health; PCP Nurse Practitioner Adult Health; Visit Provider Nurse Practitioner Family
DX: R06.02 Shortness of breath (principal)
CPT/HCPCS: 94618

== ENCOUNTER 2020-09-05 01:14 | Day surgery (SDC) | payer OTHER, SELFPAY ==
[2020-08-04 16:11] VITALS: BMI 34.4
--- NOTE | 2020-09-04 15:44 | WPDANESEPPF ---
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 Patient Data Age: 54 Gender: F Height: 1.63 m Weight: 91.2 kg Allergies Allergy/AdvReac Type Severity Reaction Status Date / Time morphine AdvReac Mild headache Verified 09/05/20 10:42 Home Medications Medication Instructions Recorded Confirmed Type hydrocodone 10 mg-acetaminophen 1 tablet PO Q6H PRN 07/03/19 09/03/20 History 325 mg tablet albuterol sulfate 0.63 mg/3 mL 0.63 mg INHALATION Q4-6H PRN #90 ml 07/11/19 09/05/20 Rx solution for nebulization ipratropium bromide 0.02 % 2.5 ml INHALATION Q6H PRN #150 ml 12/13/19 09/05/20 Rx solution for inhalation aspirin 81 mg PO DAILY 01/19/20 09/05/20 History lamotrigine 100 mg PO HS 01/19/20 09/05/20 History tizanidine 2 mg PO BID 01/19/20 09/05/20 History alprazolam 0.5 mg PO DAILY 05/11/20 09/05/20 History baclofen 10 mg PO BID 05/11/20 09/05/20 History zolpidem 10 mg tablet 10 mg PO HS 30 Days #30 tablet 07/07/20 09/05/20 Rx melatonin 3 mg PO HS PRN 07/08/20 09/05/20 History albuterol sulfate [Proventil HFA] 2 puff INHALATION QID PRN #6.7 g 07/09/20 09/05/20 Rx guaifenesin [Mucinex] 1,200 mg PO BID #20 tablet 07/09/20 09/05/20 Rx citalopram 20 mg PO DAILY 08/04/20 09/05/20 History gabapentin 300 mg PO TID 08/04/20 09/05/20 History hydroxyzine HCl 25 mg PO PRN PRN 08/04/20 09/05/20 History ondansetron 4 mg PO Q6H PRN 08/04/20 09/05/20 History oxycodone 5 mg PO Q8H PRN 08/04/20 09/05/20 History pantoprazole 40 mg PO BID 08/04/20 09/05/20 History alprazolam 0.5 mg PO BID PRN 30 Days #10 08/12/20 09/05/20 Rx tablet furosemide 20 mg PO DAILY #20 tablet 08/18/20 09/05/20 Rx dexamethasone 4 mg PO DAILY 09/02/20 09/05/20 History warfarin 5 mg PO DAILY 09/02/20 09/05/20 History Patient hx anesthesia problems: none Family hx anesthesia problems: none [facility] Past Medical History Medical History Anxiety Arthritis Bronchitis COPD (chronic obstructive pulmonary disease) Depression Diabetes GERD (gastroesophageal reflux disease) CIRSTY (obstructive sleep apnea) Peripheral neuropathy Shingles TIA (transient ischemic attack) Surgical History Surgical History H/O tubal ligation History of appendectomy History of cholecystectomy Hx of tonsillectomy Family History Family History Father Hypertension Mother Family history of malignant melanoma Other Diabetes mellitus Family history of kidney disease Family history of tuberculosis Social History Social History Social History: recently quit smoking since hospitalization Smoking packs per day: 2 Smoking cigarettes per day: 40.0 Years smoked: 30 Smoking pack-years: 60.00 Smoking status: Current every day smoker Tobacco type: cigarettes Smoking end date: 05/25/20 Additional smoking assessment comments: smoking daily but only 1-3 cigarettes a day Alcohol intake: never Substance use: never Living arrangements: with family Gender identity (if verbalized by the patient): Female Spiritual care concerns: No Anes - Eval Final PreProcedure Day of Procedure 09/04/20 15:44 Patient weight: obese Heart: regular rate and rhythm Lungs: clear to auscultation and normal air movement Airway: Mallampati scale class II Neurological: alert and oriented Last oral intake: >/= 8 hours ASA classification: IV Emergent: no Anesthetic plan: proceed Anesthesia type and monitoring: general GIVS Informed Consent: The patient's anesthetic plan and its attendant risks and benefits were discussed with the patient/family/
--- NOTE | ~2020-09-05 | XR_ITS ---
EXAMINATION: XR chest port-a-cath/central INDICATION: Port-A-Cath insertion TECHNIQUE: AP view of the chest is obtained. COMPARISON: 07/07/2020 FINDINGS: A left internal jugular Port-A-Cath has been inserted with its tip at the distal superior v manoj cava. No pleural effusion or pneumothorax are identified. The heart size is enlarged. Diffuse pat paddy airspace opacities persistent without significant change. IMPRESSION: 1. Left internal jugular Port-A-Cath insertion. No pneumothorax identified. 2. Diffuse lung disease which could reflect pneumonia and/or pulmonary edema and/or chronic lung dise ase. Reviewed, dictated and finalized at location A. CAL LIBRARY ASSISTANT IMPRESSION: 1. Left internal jugular Port-A-Cath insertion. No pneumothorax identified. 2. Diffuse lung disease which could reflect pneumonia and/or pulmonary edema an d/or chronic lung disease.
--- NOTE | ~2020-09-05 | XR_ITS ---
EXAMINATION: XR fl guide central line place INDICATION: Port-A-Cath insertion TECHNIQUE: Two intraoperative fluoroscopic images are submitted for review. Total fluoroscopic time w as 187.7 seconds. COMPARISON: None available FINDINGS: Fluoroscopic images demonstrate a left internal jugular Port-A-Cath ending with its tip in the superior vena cava. Please refer to procedure note for full details. IMPRESSION: 1. Left internal jugular Port-A-Cath insertion. Please refer to procedure note for full details. Reviewed, dictated and finalized at location A. OYMENT ENGINEER
[2020-09-05 10:12] VITALS: BP 120/72; PULSE 94; RESP 16; TEMP 37.3; O2SAT 93
[2020-09-05] MEDS: LACTATED RINGERS 1,000 ML 30 ML IV CONT (10:48)
[2020-09-05] MEDS: KETOROLAC 15 MG/ML VIAL (*BKC) IV PUSH (10:50)
[2020-09-05 11:00] LABS: INR 1.1; Prothrombin Time 14.4 Seconds (11.1-14.7)
--- NOTE | 2020-09-05 11:23 | PM.IMHP ---
H&P: HPI History of Present Illness Date/Time: 09/05/20 11:23 Chief Complaint: right lung cancer Narrative: Sharla Jones is a 54 year old female who presented with metastatic right lung cancer. She has already started chemo and radiation. She has cancer metastasized to her brain. She is in need of Port placement for senior care IV access. Review of Systems Review of Systems: All systems reviewed & are unremarkable except as noted in HPI and below Constitutional: Constitutional: Denies chills, Denies fever(s), Denies headache(s) and Denies weight loss Eyes: Eyes: Denies change in vision ENT: Denies dizziness, Denies headache(s), Denies neck mass and Denies throat swelling Cardiovascular: Cardiovascular: Denies chest pain, Denies lightheadedness and Denies dyspnea Respiratory: Respiratory: Reports as per HPI Gastrointestinal: Gastrointestinal: Denies abdominal pain, Denies change in bowel habits, Denies nausea and Denies vomiting Genitourinary: Genitourinary: Denies hematuria and Denies dysuria Musculoskeletal: Musculoskeletal: Reports as per HPI Integumentary/Breasts: Skin/Breast: Reports as per HPI Neurologic: Denies dizziness and Denies headache(s) Allergic/Immunologic: Allergic/Immunologic: Denies throat swelling and Denies wheezing PMFSH Past Medical History Medical History Anxiety Arthritis Bronchitis COPD (chronic obstructive pulmonary disease) Depression Diabetes GERD (gastroesophageal reflux disease) CRISTY (obstructive sleep apnea) Peripheral neuropathy Shingles TIA (transient ischemic attack) Surgical History Surgical History H/O tubal ligation History of appendectomy History of cholecystectomy Hx of tonsillectomy Family History Family History Father Hypertension Mother Family history of malignant melanoma Other Diabetes mellitus Family history of kidney disease Family history of tuberculosis Social History Social History Social History: recently quit smoking since hospitalization Smoking packs per day: 2 Smoking cigarettes per day: 40.0 Years smoked: 30 Smoking pack-years: 60.00 Smoking status: Current every day smoker Tobacco type: cigarettes Smoking end date: 05/25/20 Additional smoking assessment comments: smoking daily but only 1-3 cigarettes a day Alcohol intake: never Substance use: never Living arrangements: with family Gender identity (if verbalized by the patient): Female Spiritual care concerns: No Meds Home Medications and Allergies Home Medications Medication Instructions Recorded Confirmed Type hydrocodone 10 mg-acetaminophen 1 tablet PO Q6H PRN 07/03/19 09/03/20 History 325 mg tablet albuterol sulfate 0.63 mg/3 mL 0.63 mg INHALATION Q4-6H PRN #90 ml 07/11/19 09/05/20 Rx solution for nebulization ipratropium bromide 0.02 % 2.5 ml INHALATION Q6H PRN #150 ml 12/13/19 09/05/20 Rx solution for inhalation aspirin 81 mg PO DAILY 01/19/20 09/05/20 History lamotrigine 100 mg PO HS 01/19/20 09/05/20 History tizanidine 2 mg PO BID 01/19/20 09/05/20 History alprazolam 0.5 mg PO DAILY 05/11/20 09/05/20 History baclofen 10 mg PO BID 05/11/20 09/05/20 History zolpidem 10 mg tablet 10 mg PO HS 30 Days #30 tablet 07/07/20 09/05/20 Rx melatonin 3 mg PO HS PRN 07/08/20 09/05/20 History albuterol sulfate [Proventil HFA] 2 puff INHALATION QID PRN #6.7 g 07/09/20 09/05/20 Rx guaifenesin [Mucinex] 1,200 mg PO BID #20 tablet 07/09/20 09/05/20 Rx citalopram 20 mg PO DAILY 08/04/20 09/05/20 History gabapentin 300 mg PO TID 08/04/20 09/05/20 History hydroxyzine HCl 25 mg PO PRN PRN 08/04/20 09/05/20 History ondansetron 4 mg PO Q6H PRN 08/04/20 09/05/20 History oxycodone 5 mg PO Q8H PRN 08/04/20 09/05/20 History pantopraz
--- NOTE | 2020-09-05 11:26 | WPDHPUPDATE1 ---
History and Physical Update Update Date/Time: 09/05/20 11:26 History and Physical has been reviewed, including an updated exam of the patient. There are NO changes in the patient's condition. Risks, benefits, and alternatives have been discussed and questions answered. Patient agrees to proceed with procedure.
[2020-09-05] MEDS: LIDO 1%/EPINEPHRINE 1:100,000 50 ML VIAL 18 ML INFILTRATE (12:18)
--- NOTE | 2020-09-05 12:44 | SUR.OPER ---
port flused with 2.5ml of Heparin 10,00units/10ml solution [id number]
--- NOTE | 2020-09-05 12:50 | PM.PROC ---
Procedure Note - Detailed Date of procedure: 09/05/20 Pre-op diagnosis: Small Cell Lung Cancer Post-op diagnosis: same Procedure performed: Left internal jugular Port-A-Cath placement using ultrasound and fluoroscopic guidance Description of procedure: Procedure as well as risks, benefits, and alternatives were discussed with patient. Written consent was obtained and placed in chart prior to procedure. Patient was brought back to surgical suite. Was placed supine on operating table. Time-out was done confirm patient procedure. IV sedation was then administered by the Anesthesia Department. The chest and neck area was prepped and draped in sterile fashion using chlorhexidine prep. Patient was placed in Trendelenburg position. SonoSite ultrasound was used to identify the left internal jugular vein. It was visualized as a compressible vessel just lateral to the carotid artery. 1% lidocaine with epinephrine was infiltrated directly over the vessel under ultrasound guidance. An 18 gauge introducer needle was then advanced under ultrasound guidance directly into the left internal jugular vein. Dark nonpulsatile blood was aspirated. A 0.035 in guidewire was then advanced through the needle under fluoroscopic guidance. The guidewire was visualized advancing all the way down into the superior vena cava. 1% lidocaine with epinephrine was then infiltrated on the left anterior chest and along the tract up to the guidewire insertion site. A 3 cm incision was made with a 15 blade scalpel, and electrocautery was then used for dissection down through the subcutaneous tissue to the pectoral fascia. A pocket was created just inferior to the incision using blunt dissection. A small jaleesa incision was then also made at the insertion site at the neck. The tunneler was then advanced from the chest incision up to the neck incision and the catheter tubing was brought up through this tract. The dilator and sheath were then advanced over the guidewire under fluoroscopic visualization. The dilator and guidewire were then removed leaving the sheath in place. The catheter tubing was then advanced through the sheath under fluoroscopic guidance. The sheath was unsnapped and carefully peeled away. The catheter tubing was released underneath the neck incision. Fluoroscopy was used to confirm proper placement of the catheter tubing and no kinks along its path. The catheter was then cut to proper length and secured to the port. The port was then accessed with a Pickett needle and aspirated and flushed with heparinized saline. The port function with ease. The port was then hep-locked with Hep-Lock solution. The port was then placed within the pocket that was created, and was secured to the fascia using 3 0 Prolene simple interrupted sutures. The patient was flattened out in bed. Charles's fascia was reapproximated using 3 0 Vicryl simple interrupted sutures. The skin of the incisions was then approximated using 4-0 Monocryl subcuticular suture. Exofin glue was then applied on top. The patient was then awakened from anesthesia and transferred to recovery. Implants: Smart Port CT port Anesthesia: MAC and local (1% lidocaine with epinephrine) Surgeon: Mark Vega DO Estimated blood loss (mL): 20 Complications: No immediate complications Condition: stable Disposition: same day Findings: Ultrasound and fluoroscopic guidance was utilized to place a left internal jugular tunneled Port-A-Cath. Using SonoSite ultrasound guidance, I was able to identify the left internal jugular vein as a compressible vessel just lateral to the carotid artery. An 18 gauge introducer needle was advanced under ultrasound guidance directly into the lumen of the vein. The 0.035 in guidewire advanced with ease. Fluoroscopic guidance was then used to guide advancement of a guidewire followed by the dilator and sheath. The guidewire was making a turn and going back up into the right internal jugular vein
[2020-09-05 12:54] VITALS: BP 94/41; PULSE 96; RESP 16; O2SAT 90
[2020-09-05 13:15] VITALS: BP 99/66; PULSE 90; RESP 20; O2SAT 94
[2020-09-05 13:45] VITALS: BP 105/70; PULSE 80; RESP 20
--- NOTE | 2020-09-05 13:54 | SUR.PHASEII ---
1310 - dr. gonsalez in room talking with patient. dr. gonsalez states that port a cath placement in place.
[2020-09-05 14:05] VITALS: BP 105/70; PULSE 80
== END 2020-09-05 14:10 | disposition home or self-care (01) ==
PROVIDERS: Anesthesiology; PCP Nurse Practitioner Adult Health; Visit Provider Surgery
PROC: (CPT 36561; principal; 2020-09-05 12:00)
DX: C34.91 Malignant neoplasm of unspecified part of right bronchus or lung (principal); C79.31 Secondary malignant neoplasm of brain; J44.9 Chronic obstructive pulmonary disease, unspecified; F41.8 Other specified anxiety disorders; K21.9 Gastro-esophageal reflux disease without esophagitis; E11.42 Type 2 diabetes mellitus with diabetic polyneuropathy; G47.33 Obstructive sleep apnea (adult) (pediatric); Z86.73 Personal history of transient ischemic attack (TIA), and cerebral infarction without residual deficits; Z79.01 Long term (current) use of anticoagulants; Z79.82 Long term (current) use of aspirin; F17.210 Nicotine dependence, cigarettes, uncomplicated; E66.9 Obesity, unspecified; Z68.34 Body mass index [BMI] 34.0-34.9, adult
CPT/HCPCS: 36561; 36415; 77001; 85610; 85730; C1769; C1788; J1644; J1885; J2250; J2405; J2704; J3010; J7040; J7120

== ENCOUNTER 2020-10-06 09:54 | Outpatient (CLI) | payer OTHER, SELFPAY ==
--- NOTE | ~2020-10-06 | MR_ITS ---
EXAMINATION: MR brain/brain stem wo/w con DATE: 10/06/2020 11:23 INDICATION: Secondary malignant neoplasm of brain. TECHNIQUE: Magnetic resonance imaging (MRI) of the brain and brainstem was performed without and with 18 mL MultiHance intravenous contrast. Sequences included sagittal and axial T1-weighted FSE, axial diffusion-weighted FS EPI, axial T2*-weighted GRE, axial T2-weighted FLAIR Propeller, and axial T2-we ighted Propeller. Postcontrast sequences included axial, sagittal, and coronal T1-weighted FSE. Appar ent diffusion coefficient (ADC) maps were created. COMPARISON: Brain MRI 09/03/2014 FINDINGS: There are scattered areas of nonspecific increased T2-weighted signal intensity in the cere bral white matter, which is within normal limits for the patient's age. There is no intracranial hemo rrhage, acute infarction, or abnormal intracranial mass lesion. The ventricles are normal in size. Th ere is a small left mastoid effusion. There is mild mucosal thickening in the ethmoid sinuses. The or bits are normal. IMPRESSION: 1. Normal aging brain. Reviewed, dictated and finalized at location A. IMPRESSION: 1. Normal aging brain.
== END 2020-10-06 09:55 | disposition home or self-care (01) ==
PROVIDERS: PCP Nurse Practitioner Adult Health; Visit Provider Radiology Radiation Oncology
DX: C79.31 Secondary malignant neoplasm of brain (principal)
CPT/HCPCS: 70553; A9577

== ENCOUNTER 2020-10-21 18:32 | Outpatient (CLI) | payer OTHER, SELFPAY ==
--- NOTE | ~2020-10-21 | CT_ITS ---
EXAMINATION: CT soft tissue neck wo/w con DATE: 10/21/2020 19:30 INDICATION: Jaw pain. Small cell lung cancer. TECHNIQUE: Computed tomography (CT) of the neck was performed without and with 75 mL Omnipaque-350 in travenous contrast. Automated exposure control and iterative reconstruction technique were employed. The dose-length product was 1108.84 mGy-cm. COMPARISON: Chest CT 07/08/2020 FINDINGS: The visualized portions of the lung apices demonstrate patchy groundglass opacities and sep josue thickening. There is asymmetric enlargement and increased density of left parotid gland. There is fat stranding around left parotid gland. These findings are consistent with parotiditis. There is a skin marker superficial to this area. There is no sialolith. There is a left internal jugular port wi th tip not included. There is mediastinal lymphadenopathy. A right paratracheal node measures 2.3 x 1 .6 cm, decreased from 4.5 x 3.3 cm. There is a small left mastoid effusion. The bones are unremarkabl e. IMPRESSION: 1. Left-sided parotiditis. 2. Mediastinal lymphadenopathy with interval improvement, consistent with metastatic disease. 3. Diffuse lung disease, consistent with pulmonary edema versus pneumonia versus treatment changes. Reviewed, dictated and finalized at location A. IMPRESSION: 1. Left-sided parotiditis. 2. Mediastinal lymphadenopathy with interval improvement, consistent with metas tatic disease. 3. Diffuse lung disease, consistent with pulmonary edema versus pneumonia versu s treatment changes.
== END 2020-10-21 18:33 | disposition home or self-care (01) ==
PROVIDERS: PCP Nurse Practitioner Adult Health; Visit Provider Internal Medicine Medical Oncology
DX: C34.90 Malignant neoplasm of unspecified part of unspecified bronchus or lung (principal); K11.20 Sialoadenitis, unspecified; R59.1 Generalized enlarged lymph nodes; R59.0 Localized enlarged lymph nodes; J98.4 Other disorders of lung
CPT/HCPCS: 70492; Q9967

== ENCOUNTER 2020-11-06 09:32 | Outpatient (CLI) | payer OTHER, SELFPAY ==
--- NOTE | ~2020-11-06 | CT_ITS ---
EXAMINATION: CT diagnostic chest w con DATE: 11/06/2020 10:01 INDICATION: Small cell lung cancer TECHNIQUE: Transaxial computed tomographic images of the chest were obtained after the administration of 75 cc of Omnipaque 350 intravenous contrast. The dose-length product (DLP) was 218.18 mGy-cm. Ite rative reconstruction was used. COMPARISON: 07/08/2020 FINDINGS: A 10 mm x 6 mm nodule of the right middle lobe previously measured 2.1 cm. Bulky hilar and right lower paratracheal lymphadenopathy persists but has also improved. There is decreased mass effe ct on the right hilar bronchi, pulmonary arteries, and the right atrium. Previously described cluster of nodules in the basilar right lower lobe have nearly completely resolved. Groundglass opacities th roughout the lungs persist but have improved. The heart size is normal. There is no pleural effusion or pneumothorax. A left subclavian Port-A-Cath ends with its tip in the distal superior vena cava. Th e gallbladder is surgically absent. There is mild thoracic spondylosis. IMPRESSION: 1. Treatment response as evidenced by decrease in size of the previously described right middle lobe nodule and decreased right hilar and lower paratracheal lymphadenopathy. 2. Patchy but improved groundglass opacities throughout the lungs and clustered nodules in the right lower lobe, likely resolved infection/inflammation and/or pulmonary edema. Reviewed, dictated and finalized at location B. IMPRESSION: 1. Treatment response as evidenced by decrease in size of the previously descri bed right middle lobe nodule and decreased right hilar and lower paratracheal l ymphadenopathy. 2. Patchy but improved groundglass opacities throughout the lungs and clustered nodules in the right lower lobe, likely resolved infection/inflammation and/or pulmonary edema.
== END 2020-11-06 09:33 | disposition home or self-care (01) ==
PROVIDERS: PCP Nurse Practitioner Adult Health; Visit Provider Internal Medicine Hematology & Oncology
DX: C34.90 Malignant neoplasm of unspecified part of unspecified bronchus or lung (principal); R91.8 Other nonspecific abnormal finding of lung field
CPT/HCPCS: 71260; Q9967

== ENCOUNTER 2020-11-27 15:47 | Emergency (ER) | payer OTHER, SELFPAY ==
[2020-11-27] VITALS (14 sets, daily range): BP systolic 81–108; BP diastolic 55–79; PULSE 76–103; RESP 12–25; TEMP 36.6; O2SAT 90–100
--- NOTE | ~2020-11-27 | XR_ITS ---
EXAMINATION: XR chest 2V EXAM DATE: 11/27/2020 16:21 INDICATION: Chest pain, history of lung cancer and states brain metastases. TECHNIQUE: Frontal and lateral projections of the chest obtained and reviewed. Comparison is made to prior examination from 09/05/2020. FINDINGS: There is left-sided portacatheter, tip projecting over cavoatrial junction. Mild cardiomega ly. There is right hilar fullness, correlate with recent CT chest report. Some prominent right perihi lar reticular markings which are probably chronic. No evidence of superimposed acute airspace disease . No pneumothorax or pleural effusion. IMPRESSION: 1. No acute cardiopulmonary findings. 2. Right hilar fullness, some radiating reticular nodular opacities; treated lung cancer. Correlate with recent CT report. Reviewed, dictated and finalized at location [facility]. IMPRESSION: 1. No acute cardiopulmonary findings. 2. Right hilar fullness, some radiating reticular nodular opacities; treated l theo cancer. Correlate with recent CT report.
--- NOTE | ~2020-11-27 | CT_ITS ---
EXAMINATION: CT brain w con DATE: 11/27/2020 17:55 INDICATION: Headache. Lung cancer. TECHNIQUE: Computed tomography (CT) of the head was performed with 100 mL Omnipaque 350 intravenous c ontrast. The mA was adjusted according to patient size. Iterative reconstruction technique was employ ed. The dose-length product was 681.00 mGy-cm. COMPARISON: Head CT 05/12/2020, brain MRI 10/06/2020 FINDINGS: There is no intracranial hemorrhage, acute infarction, or abnormal intracranial mass lesion . The ventricles are normal in size. The paranasal sinuses are clear. The mastoid air cells are edmond l. IMPRESSION: 1. Normal brain. Reviewed, dictated and finalized at location A. IMPRESSION: 1. Normal brain.
--- NOTE | 2020-11-27 15:57 | ECG_ITS ---
Measurements Intervals [place] Rate: 101 P: 62 DC: 153 QRS: 73 QRSD: 93 T: 44 QT: 359 QTc: 466 Interpretive Statements SINUS TACHYCARDIA LEFT ATRIAL ENLARGEMENT INCOMPLETE RIGHT BUNDLE BRANCH BLOCK NONSPECIFIC ST & T-WAVE ABNORMALITY- ANT/INF LEADS BASELINE ARTIFACT- I, II, AVR, AVL, AVF, V1 BORDERLINE ECG Electronically Signed On 11-27-2020 16:18:24 CDT by Vinicius Wynne D.O.
[2020-11-27 16:19] LABS: Basophils Percent Auto 0.3 % (0.2-1.2); Eosinophils Absolute Auto 0.1 K/mm3 (0-0.3); Eosinophils Percent Auto 0.6 % (0-4.4); Hematocrit 39.5 % (37.0-47.0); Hemoglobin 12.6 g/dL (12.0-15.0); Immature Granulocyte Absolute 0.08 K/mm3 (0.00-0.031); Immature Granulocyte Percent A 0.7 % (0-0.5); Lymphocytes Absolute Auto 2.48 K/mm3 (0.9-3.2); Lymphocytes Percent Auto 21.2 % (18.3-44.2); Mean Corpuscular HGB Conc 31.9 g/dl (32-36); Mean Corpuscular Hemoglobin 34.7 pg (26-34); Mean Corpuscular Volume 108.8 fl (80-100); Mean Platelet Volume 10.5 fl (7.4-10.4); Monocytes Absolute Auto 0.9 K/mm3 (0.1-0.6); Monocytes Percent Auto 7.7 % (2.6-8.5); Neutrophils Absolute Auto 8.1 K/mm3 (1.3-6.7); Neutrophils Percent Auto 69.5 % (45.5-73.1); Platelet Count Result 259 k/mm3 (150-375); Red Blood Count 3.63 M/mm3 (4.2-5.4); Red Cell Distribution Width 16.1 % (11.5-14.5); White Blood Count 11.7 K/mm3 (4.5-10.0)
[2020-11-27 16:28] LABS: Lactic Acid Reflex 1.2 mmol/L (0.7-2.1); Prothrombin Time 13.5 Seconds (11.1-14.7)
[2020-11-27 16:29] LABS: Partial Thromboplastin Time 29.5 SECONDS (22.3-36.8)
[2020-11-27] MEDS: ASPIRIN 81 MG CHEWABLE TABLET 324 MG PO (16:41)
[2020-11-27 16:45] LABS: Anion Gap 2 mmol/L (8-16); Blood Urea Nitrogen 11 mg/dL (7-17); Carbon Dioxide 38 mmol/L (22-30); Chloride 93 mmol/L (98-107); Estimated CRCL calculation 113 ml/min; Estimated Glomerular Filt Rate > 60; Glucose 106 mg/dL (65-105); Potassium 4.5 mmol/L (3.4-5.0); Sodium 133 mmol/L (137-145)
[2020-11-27 16:53] LABS: Troponin I < 0.012 ng/mL (0.000-0.034)
[2020-11-27] MEDS: LACTATED RINGERS 1,000 ML 999 ML IV CONT ×2 (17:45→19:52)
[2020-11-27] MEDS: PROCHLORPERAZINE EDISYLATE 10 MG/2 ML VIAL IV PUSH (18:29)
[2020-11-27] MEDS: KETOROLAC 30 MG/ML VIAL (*BKC) 15 MG IV PUSH (18:29)
--- NOTE | 2020-11-27 19:38 | ED.GENADULT ---
HPI - General Adult General Chief complaint: Chest Pain Stated complaint: RODRIGUEZ, hx lung CA, worsening SOB Time Seen by Provider: 11/27/20 16:14 Source: patient Mode of arrival: ambulatory Limitations: no limitations History of Present Illness HPI narrative: 55-year-old female Patient has a history of metastatic lung cancer and is received chemo, most recently in September, and also received brain radiation She arrives tonight with a number of complaints She feels generally weak and her appetite is poor She has right anterior chest pain worse with breathing coughing movement or palpation She has a throbbing headache which has been coming and going daily for almost a week A lot of people in her household seem to have sinus problems right now however she primarily has only a headache She does not have a fever or sinus congestion, no sore throat, no stiff neck, she is not coughing anything up, no diarrhea or vomiting Related Data Home Medications Medication Instructions Recorded Confirmed lamotrigine 100 mg PO HS 01/19/20 10/17/20 tizanidine 2 mg PO BID 01/19/20 10/17/20 baclofen 10 mg PO BID 05/11/20 10/17/20 citalopram 20 mg PO DAILY 08/04/20 10/17/20 hydroxyzine HCl 25 mg PO PRN PRN 08/04/20 10/17/20 ondansetron 4 mg PO Q6H PRN 08/04/20 10/17/20 oxycodone 5 mg PO Q8H PRN 08/04/20 10/17/20 warfarin 5 mg PO DAILY 09/02/20 10/17/20 Allergies Allergy/AdvReac Type Severity Reaction Status Date / Time morphine AdvReac Mild headache Verified 11/27/20 16:05 Review of Systems Review of Systems: All systems reviewed & are unremarkable except as noted in HPI and below Constitutional: Constitutional: Reports no additional constitutional complaints, Denies chills, Reports fatigue, Denies fever(s), Denies headache(s) and Reports weakness Eyes: Eyes: Reports no additional eye complaints and Denies change in vision ENT: Denies dizziness, Denies headache(s) and Denies sore throat Cardiovascular: Cardiovascular: Reports chest pain, Denies radiating jaw, neck or arm pain and Denies dyspnea Respiratory: Respiratory: Reports cough, Denies dyspnea and Denies wheezing Gastrointestinal: Gastrointestinal: Denies abdominal pain, Denies constipation, Denies diarrhea and Denies vomiting Genitourinary: Genitourinary: Denies urinary frequency, Denies nocturia and Denies dysuria Musculoskeletal: Musculoskeletal: Reports myalgias, Denies deformity, Denies arthralgias, Denies joint swelling and Denies numbness Integumentary/Breasts: Skin/Breast: Denies rash and Denies wounds Neurologic: Reports headache(s), Denies focal weakness and Denies numbness Psychiatric: Psychiatric: Reports no additional psychiatric complaints Endocrine: Endocrine: Reports no additional endocrine complaints Hematologic/Lymphatic: Hematologic/Lymphatic: Reports no additional hematologic/lymphatic complaints Allergic/Immunologic: Allergic/Immunologic: Reports no additional allergic/immunologic complaints [facility] Past Medical History Medical History Anxiety Arthritis Bronchitis COPD (chronic obstructive pulmonary disease) Depression Diabetes GERD (gastroesophageal reflux disease) CRISTY (obstructive sleep apnea) Peripheral neuropathy Shingles TIA (transient ischemic attack) Surgical History Surgical History H/O tubal ligation History of appendectomy History of cholecystectomy Hx of tonsillectomy Family History Family History Father Hypertension Mother Family history of malignant melanoma Other Diabetes mellitus Family history of kidney disease Family history of tuberculosis Social History Social History Social History: recently quit smoking since hospitalization Smoking packs per day: 2 Smoking ciga
[2020-11-27 19:40] LABS: Troponin I < 0.012 ng/mL (0.000-0.034)
== END 2020-11-27 20:49 | disposition home or self-care (01) ==
PROVIDERS: Emergency Medicine; Emergency Provider Emergency Medicine; PCP Nurse Practitioner Adult Health
DX: C80.1 Malignant (primary) neoplasm, unspecified (principal); R51.9 Headache, unspecified; R07.89 Other chest pain; J44.9 Chronic obstructive pulmonary disease, unspecified; E11.42 Type 2 diabetes mellitus with diabetic polyneuropathy; K21.9 Gastro-esophageal reflux disease without esophagitis; G47.33 Obstructive sleep apnea (adult) (pediatric); M19.90 Unspecified osteoarthritis, unspecified site; F41.9 Anxiety disorder, unspecified; Z86.73 Personal history of transient ischemic attack (TIA), and cerebral infarction without residual deficits; Z79.01 Long term (current) use of anticoagulants; Z99.81 Dependence on supplemental oxygen; Z87.891 Personal history of nicotine dependence; R00.0 Tachycardia, unspecified; I45.10 Unspecified right bundle-branch block; R94.31 Abnormal electrocardiogram [ECG] [EKG]; Z92.3 Personal history of irradiation
CPT/HCPCS: 36415; 70460; 71046; 80048; 83605; 84484; 85025; 85610; 85730; 87040; 93005; 96361; 96374; 96375; 99284; A9270; J0780; J1100; J1885; J7120; Q9967

== ENCOUNTER 2020-12-04 12:03 | Inpatient (IN) | payer OTHER, SELFPAY ==
[2020-12-04] VITALS (16 sets, daily range): BP systolic 90–123; BP diastolic 55–84; PULSE 77–107; RESP 16–24; TEMP 36.3–36.8; O2SAT 94–100
--- NOTE | ~2020-12-04 | CT_ITS ---
EXAMINATION: CTA chest PE protocol DATE: 12/04/2020 13:46 INDICATION: Chest pain and hemoptysis. History of lung cancer. TECHNIQUE: Computed tomography angiography (CTA) of the chest was performed with 100 mL Omnipaque-350 intravenous contrast timed to evaluate the pulmonary arteries. Coronal maximum intensity projection 3D-reconstructions were created by the technologist. Automated exposure control and iterative reconst ruction technique were employed. Exam dose: 528.10 mGy-cm total exam DLP. COMPARISON: 11/27/2020 AP and lateral chest 11/07/2020 CT chest FINDINGS: There is diagnostic contrast enhancement of the pulmonary arteries. In less than one month since 11/04/2020 there has been dramatic progression and enlargement of right s uperior mediastinal, paratracheal, precarinal and particularly right hilar and subcarinal lymphadenop athy. There is associated narrowing of the right distal main pulmonary artery and complete occlusion of the right upper lobe pulmonary artery. There is some splaying and narrowing of the right lower lob e pulmonary artery and some intraluminal thrombus of the middle lobe artery. There is mild posterolateral left lower lobe pulmonary embolism. There is patchy infiltrate scattered throughout the right upper lobe, possibly due to pulmonary infar ction. Approximately 14 x 25 mm middle lobe soft tissue mass or adenopathy. Considerably lesser stable aortopulmonary window lymphadenopathy. No thoracic aortic aneurysm or dissection. Trace pericardial effusion. Mild right pleural effusion. There is mild peripheral atelectasis of the right lower lobe. Status post cholecystectomy. Included portions of the adrenal glands are unremarkable. Small sliding hiatal hernia. IMPRESSION: Dramatically increased right superior mediastinal, paratracheal, precarinal, right perih ilar and subcarinal lymphadenopathy since 11/06/2020, with encasement and complete occlusion of the ri ght upper lobe pulmonary artery Middle lobe and left lower lobe mild pulmonary embolism Patchy infiltrate in the right upper lobe, likely secondary to pulmonary infarction Reviewed, dictated and finalized at [facility]. Reviewed, dictated and finalized at location A. IMPRESSION: Dramatically increased right superior mediastinal, paratracheal, p recarinal, right perihilar and subcarinal lymphadenopathy since 11/06/2020, with encasement and complete occlusion of the right upper lobe pulmonary artery Middle lobe and left lower lobe mild pulmonary embolism Patchy infiltrate in the right upper lobe, likely secondary to pulmonary infarc tion
--- NOTE | ~2020-12-04 | US_ITS ---
EXAMINATION: US venous doppler [facility] DATE: 12/05/2020 10:16 INDICATION: Chest pain. TECHNIQUE: Grayscale ultrasound images without and with compression and Doppler ultrasound images of the bilateral lower extremity veins were obtained. COMPARISON: Ultrasound 08/12/2020 FINDINGS: The visualized portions of right common femoral vein, profunda (deep) femoral vein, femoral vein, pop liteal vein, peroneal veins, posterior tibial veins, and greater saphenous vein outflow are patent. The visualized portions of left common femoral vein, profunda femoral vein, peroneal veins, posterior tibial veins, and greater saphenous vein outflow are patent. There is thrombus in left femoral and p opliteal veins. There is a large Pascual's cyst. IMPRESSION: 1. Deep vein thrombosis involving left femoral and popliteal veins with interval improvement in dist ribution. 2. Large left-sided Pascual's cyst. Reviewed, dictated and finalized at location B. IMPRESSION: 1. Deep vein thrombosis involving left femoral and popliteal veins with interv al improvement in distribution. 2. Large left-sided Pascual's cyst.
--- NOTE | 2020-12-04 12:15 | ECG_ITS ---
Measurements Intervals [place] Rate: 96 P: 49 SC: 145 QRS: 63 QRSD: 95 T: 46 QT: 361 QTc: 458 Interpretive Statements SINUS RHYTHM POSSIBLE LEFT ATRIAL ENLARGEMENT INCOMPLETE RIGHT BUNDLE BRANCH BLOCK BASELINE ARTIFACT- II, III, AVR, AVF, V1, V3-V6 BORDERLINE ECG Electronically Signed On 12-04-2020 12:39:15 CDT by Vinicius Wynne D.O.
--- NOTE | 2020-12-04 13:02 | ED.GENADULT ---
HPI - General Adult General Chief complaint: Unspecified Stated complaint: SPITTING UP BLOOD Time Seen by Provider: 12/04/20 13:00 History of Present Illness HPI narrative: 55 yo female w/ h/o stage 3 small cell lung cancer on radiation and chemotherapy presents to the ED for hemoptysis. She reports that she has had worsening of her usual sharp chest pain today. This is also associated with coughing up what she refers to as coffee grounds mixed with some bright red blood. She also feels more short of breath than usual. She is maintaining O2 saturation on baseline oxygen of 3l by [place] Related Data Home Medications Medication Instructions Recorded Confirmed lamotrigine 100 mg PO HS 01/19/20 11/28/20 tizanidine 2 mg PO BID 01/19/20 11/28/20 baclofen 10 mg PO BID 05/11/20 11/28/20 citalopram 20 mg PO DAILY 08/04/20 11/28/20 hydroxyzine HCl 25 mg PO PRN PRN 08/04/20 11/28/20 ondansetron 4 mg PO Q6H PRN 08/04/20 11/28/20 oxycodone 5 mg PO Q8H PRN 08/04/20 11/28/20 amoxicillin-pot clavulanate 1 tablet PO Q12H 12/04/20 [Augmentin] levetiracetam [Keppra] 500 mg PO BID 12/04/20 prochlorperazine maleate PO 12/04/20 Allergies Allergy/AdvReac Type Severity Reaction Status Date / Time morphine AdvReac Mild headache Verified 12/04/20 12:15 Review of Systems Review of Systems: All systems reviewed & are unremarkable except as noted in HPI and below Constitutional: Constitutional: Denies fever(s) Cardiovascular: Cardiovascular: Reports chest pain Respiratory: Respiratory: Reports as per HPI Gastrointestinal: Gastrointestinal: Denies nausea and Denies vomiting Genitourinary: Genitourinary: Reports no additional female genitourinary complaints Musculoskeletal: Musculoskeletal: Reports no additional musculoskeletal complaints Neurologic: Reports weakness PMFSH Past Medical History Medical History Anxiety Arthritis Bronchitis COPD (chronic obstructive pulmonary disease) Depression Diabetes GERD (gastroesophageal reflux disease) CRISTY (obstructive sleep apnea) Peripheral neuropathy Shingles TIA (transient ischemic attack) Surgical History Surgical History H/O tubal ligation History of appendectomy History of cholecystectomy Hx of tonsillectomy Family History Family History Father Hypertension Mother Family history of malignant melanoma Other Diabetes mellitus Family history of kidney disease Family history of tuberculosis Social History Social History Social History: recently quit smoking since hospitalization Smoking packs per day: 2 Smoking cigarettes per day: 40.0 Years smoked: 30 Smoking pack-years: 60.00 Smoking status: Current every day smoker Tobacco type: cigarettes Smoking end date: 05/25/20 Additional smoking assessment comments: smoking daily but only 1-3 cigarettes a day Alcohol intake: never Substance use: never Gender identity (if verbalized by the patient): Female Spiritual care concerns: No Exam Const: General: no acute distress, alert and ill appearing acutely and chronically Orientation/consciousness: patient oriented x3 HENMT: Head: normal to inspection Other: hyperpigmentation Neck: Neck: normal visual inspection Chest: Chest palpation & inspection: no tenderness Resp: Effort & Inspection: normal respiratory effort Auscultation: no rales, rhonchi right upper and wheezes Cardio: Jugular venous distension: no JVD Rate: regular rate Rhythm: regular rhythm Heart sounds: no murmurs GI: Inspection: non-distended GI Palp: Yes Soft to palpation and No Tenderness to palpation present (GI) Skin: General skin exam: normal color Neuro: General: patient oriented x3 and moves all extremities Cranial nerves: Yes CN's II-XII
[2020-12-04] MEDS: fentaNYL CITRATE INJ (*CRX) 100 MCG/2 ML VIAL 50 MCG IV PUSH (13:27)
[2020-12-04 13:34] LABS: Basophils Percent Auto 0.3 % (0.2-1.2); Eosinophils Absolute Auto 0.1 K/mm3 (0-0.3); Eosinophils Percent Auto 0.7 % (0-4.4); Hematocrit 38.5 % (37.0-47.0); Hemoglobin 12.2 g/dL (12.0-15.0); Immature Granulocyte Absolute 0.08 K/mm3 (0.00-0.031); Immature Granulocyte Percent A 0.6 % (0-0.5); Lymphocytes Absolute Auto 1.82 K/mm3 (0.9-3.2); Lymphocytes Percent Auto 13.4 % (18.3-44.2); Mean Corpuscular HGB Conc 31.7 g/dl (32-36); Mean Corpuscular Hemoglobin 32.7 pg (26-34); Mean Corpuscular Volume 103.2 fl (80-100); Mean Platelet Volume 11.3 fl (7.4-10.4); Monocytes Absolute Auto 1.4 K/mm3 (0.1-0.6); Monocytes Percent Auto 10.3 % (2.6-8.5); Neutrophils Absolute Auto 10.1 K/mm3 (1.3-6.7); Neutrophils Percent Auto 74.7 % (45.5-73.1); Platelet Count Result 255 k/mm3 (150-375); Red Blood Count 3.73 M/mm3 (4.2-5.4); Red Cell Distribution Width 15.4 % (11.5-14.5); White Blood Count 13.6 K/mm3 (4.5-10.0)
[2020-12-04 13:35] LABS: Estimated CRCL calculation 84 ml/min; Estimated Glomerular Filt Rate > 60
--- NOTE | 2020-12-04 13:41 | PC.NURSE ---
Pt in CT.
[2020-12-04 13:49] LABS: Alanine Aminotransferase 14 U/L (4-35); Albumin Level 3.9 g/dL (3.5-5.1); Alkaline Phosphatase 69 U/L (38-126); Aspartate Amino Transferase 26 U/L (14-36); Bilirubin,Total 0.5 mg/dL (0.2-1.3); Blood Urea Nitrogen 7 mg/dL (7-17); Calcium 8.9 mg/dL (8.4-10.2); Carbon Dioxide > 40 mmol/L (22-30); Chloride 92 mmol/L (98-107); Estimated CRCL calculation 114 ml/min; Estimated Glomerular Filt Rate > 60; Glucose 99 mg/dL (65-105); Potassium 2.3 mmol/L (3.4-5.0); Sodium 137 mmol/L (137-145)
[2020-12-04 14:00] LABS: Troponin I < 0.012 ng/mL (0.000-0.034)
[2020-12-04 14:13] LABS: Prothrombin Time 13.7 Seconds (11.1-14.7)
[2020-12-04 14:14] LABS: Partial Thromboplastin Time 34.4 SECONDS (22.3-36.8)
--- NOTE | 2020-12-04 14:29 | PC.NURSE ---
Called lab and added-on a PT/INR/PTT & CBCD
[2020-12-04] MEDS: SODIUM CHLORIDE 0.9% IV 1,000 ML 999 ML IV CONT (14:45)
[2020-12-04] MEDS: HEPARIN SOD/D5W 100 UNITS/ML 25,000 UNITS/250 ML BAG 12 UNITS IV CONT (15:24)
--- NOTE | 2020-12-04 16:15 | PM.IMHP ---
H&P: HPI History of Present Illness Date/Time: 12/04/20 16:15 Chief Complaint: Shortness of breath. Narrative: This is a 55-year-old female with extensive stage small cell lung cancer status post whole-brain radiation currently undergoing chemotherapy, history of lower extremity DVT no longer on anticoagulation, chronic respiratory failure on home oxygen, and COPD who presented to the emergency department earlier today via EMS from home with complaints of shortness of breath. She has a chronic cough however over the last 24 hours or so she has noticed a small amount of bright red blood admixed with clear sputum. She also complains of pleuritic chest pain, worse with deep inspiration, cough, and movement that seems to have started in the last day or so as well. Additionally she has had some lightheadedness over the past 24 hours and also notes increasing dyspnea on lesser and lesser exertion over the past several weeks. Chest CTA done in the emergency department today showed a dramatic increase in lymphadenopathy with encasement and complete occlusion of the right upper lobe pulmonary artery as well as middle lobe and left lower lobe pulmonary embolism and findings suspicious for pulmonary infarction in the right upper lobe and she is being admitted in this setting. She has no current complaints and specifically denies syncope, near syncope, massive hemoptysis, racing heart, lower extremity edema, and leg pain. Patient reports that she quit smoking about month ago, prior to that she was smoking a pack of cigarettes a day for almost 40 years Review of Systems Review of Systems: Narrative: Twelve systems were reviewed with pertinent positives and negatives as per HPI. She has lost about 30 pounds since her diagnosis in June 2020. She tells me she just does not have an appetite. No overt nausea. She denies vomiting. She gets constipated due to her pain medications and usually has to use a Fleet's enema to have a bowel movement, last which was approximately 2 days ago. She sleeping a lot and is constantly tired. No fever, chills, or sweats. No recent cold or flu symptoms. She denies exposure to those positive for COVID-19. Taking Keppra for seizure prophylaxis due to history of brain mets. Except as documented, all other systems were reviewed and are negative. [facility] Past Medical History Medical History (Updated 12/04/20 @ 18:54 by Nancy Guillen PA-C) Anxiety Arthritis Chronic obstructive pulmonary disease Chronic respiratory failure with hypoxia, on home O2 therapy 2L during the daytime and 3L at nighttime. COVID-19 (07/2020) Depression Depression with anxiety Gastroesophageal reflux disease Lower extremity deep venous thrombosis (07/2020) Nephrolithiasis Obstructive sleep apnea Osteoarthritis Peripheral neuropathy Pre-diabetes Hemoglobin A1c was 5.3% in April 2020. Shingles Small cell lung cancer (~06/2020) Extensive stage small cell lung cancer arising in the right lung with lung metastases and solitary brain met status post whole-brain radiation per Dr. Cruz. Currently undergoing chemotherapy per Dr. Nicole. Urinary, incontinence, stress female Surgical History Surgical History (Updated 12/04/20 @ 18:29 by Nancy Guillen PA-C) History of appendectomy History of arthroplasty of right knee History of cholecystectomy History of eye surgery Repair of detached right retina. History of hysterectomy History of lumbar surgery History of tonsillectomy History of tubal ligation Family History Family History Father Hypertension Mother Family history of malignant melanoma Family history of kidney disease Grandparent Diabetes mellitus Other Family history of tuberculosis Social History Social History (Updated 12/04/20 @ 18:35 by Nancy Guillen PA-C) Social History: Surrogate decision maker: Shirley Costa, daughter. Code status: Do not resus
--- NOTE | 2020-12-04 17:49 | ADMGEN ---
This patient, Sharla Jones, was admitted to IMU Room 214-01. Patient/family oriented to hospital policies and general routines including ID bracelet, bed and alarms, visiting hours, pain management, procedures, bathroom and other care routines, personal items, smoking policy, room service/diet, and visiting hours. Information on how to activate the Rapid Response Team has been discussed. Patient/Family are encouraged to report perceived risks to care and to ask questions if they do not understand what they are told or what they should do.
[2020-12-04] MEDS: LACTATED RINGERS 1,000 ML 75 ML IV CONT (18:34)
[2020-12-04] MEDS: MORPHINE SULFATE (*CRX) 2 MG/ML INJ IV PUSH ×2 (18:37→22:56)
[2020-12-04 19:27] LABS: Alveolar/Arterial O2 Gradient 94.2 mmHg; Base Excess ABG 4.8 mEq/l (+/-2.0); Carboxyhemoglobin 1.8 % THb (0-2.0); Fractional Inspired Oxygen 32 %; HCO3 ABG 29.1 mEq/l (22.0-26.0); Methemoglobin ABG 0.3 %THb (0-1.5); Oxygen Content ABG 16.6 %vol (16.0-22.0); Oxygen Saturation ABG 96.8 % (95.0-100.0); Oxyhemoglobin 93.8 % THb (90.0-100.0); PCO2 ABG 42.1 mmHg (35.0-45.0); PO2 ABG 84.7 mmHg (80.0-100.0); PO2 FiO2 Ratio Arterial Blood 2.65 %; Reduced Hemoglobin 4.1 %THb (0-5.0); Total Hemoglobin 12.5 g/dL (12.0-18.0); pH ABG 7.458 (7.350-7.450)
[2020-12-04 19:28] LABS: Device NASAL CANNULA; Modified Allen's Test Pass; Site Drawn LEFT RADIAL
[2020-12-04 19:43] LABS: Anion Gap 5 mmol/L (8-16); Blood Urea Nitrogen 4 mg/dL (7-17); Calcium 8.4 mg/dL (8.4-10.2); Carbon Dioxide 34 mmol/L (22-30); Chloride 96 mmol/L (98-107); Estimated CRCL calculation 114 ml/min; Estimated Glomerular Filt Rate > 60; Glucose 175 mg/dL (65-105); Magnesium 1.7 mg/dL (1.6-2.3); Potassium 3.1 mmol/L (3.4-5.0); Sodium 135 mmol/L (137-145)
[2020-12-04 19:45] LABS: Partial Thromboplastin Time 67.4 SECONDS (22.3-36.8)
[2020-12-04 19:55] LABS: Troponin I < 0.012 ng/mL (0.000-0.034)
[2020-12-04] MEDS: HEPARIN SODIUM 5,000 UNITS/ML VIAL 2500 UNITS IV PUSH (20:36)
[2020-12-04 20:54] LABS: NT Pro B Type Natriuretic Pept 148 pg/mL (5-100)
[2020-12-04] MEDS: guaiFENesin/DEXTROMETHORPHAN 10 ML UDC 5 ML PO (21:02)
[2020-12-04] MEDS: AMOXICILLIN/CLAVULANATE K 875-125 MG TAB 1 TABLET PO (21:05)
[2020-12-04] MEDS: levETIRAcetam 500 MG TABLET PO (21:05)
[2020-12-04] MEDS: oxyCODONE HCL (*CRX) 5 MG TAB IR PO (21:10)
[2020-12-04] MEDS: ZOLPIDEM TARTRATE (*CRX) 5 MG TABLET 10 MG PO (21:19)
[2020-12-05] VITALS (22 sets, daily range): BP systolic 96–113; BP diastolic 58–64; PULSE 89–107; RESP 16–22; TEMP 36.2–36.9; O2SAT 92–99
[2020-12-05] MEDS: guaiFENesin/DEXTROMETHORPHAN 10 ML UDC 5 ML PO ×3 (01:15→11:26)
[2020-12-05] MEDS: MORPHINE SULFATE (*CRX) 2 MG/ML INJ IV PUSH ×5 (03:26→21:39)
[2020-12-05 03:55] LABS: Basophils Percent Auto 0.3 % (0.2-1.2); Eosinophils Absolute Auto 0.1 K/mm3 (0-0.3); Eosinophils Percent Auto 0.8 % (0-4.4); Hematocrit 35.2 % (37.0-47.0); Hemoglobin 11.1 g/dL (12.0-15.0); Immature Granulocyte Absolute 0.11 K/mm3 (0.00-0.031); Immature Granulocyte Percent A 0.9 % (0-0.5); Lymphocytes Absolute Auto 1.97 K/mm3 (0.9-3.2); Lymphocytes Percent Auto 15.4 % (18.3-44.2); Mean Corpuscular HGB Conc 31.5 g/dl (32-36); Mean Corpuscular Hemoglobin 33.4 pg (26-34); Mean Platelet Volume 10.5 fl (7.4-10.4); Monocytes Absolute Auto 1.3 K/mm3 (0.1-0.6); Monocytes Percent Auto 10.4 % (2.6-8.5); Neutrophils Absolute Auto 9.2 K/mm3 (1.3-6.7); Neutrophils Percent Auto 72.2 % (45.5-73.1); Platelet Count Result 215 k/mm3 (150-375); Red Blood Count 3.32 M/mm3 (4.2-5.4); Red Cell Distribution Width 15.6 % (11.5-14.5); White Blood Count 12.8 K/mm3 (4.5-10.0)
[2020-12-05 04:10] LABS: Magnesium 1.7 mg/dL (1.6-2.3)
[2020-12-05 04:14] LABS: Partial Thromboplastin Time 61.5 SECONDS (22.3-36.8)
[2020-12-05] MEDS: ONDANSETRON INJ 4 MG/2 ML VIAL IV PUSH (04:38)
[2020-12-05] MEDS: HEPARIN SODIUM 5,000 UNITS/ML VIAL 2500 UNITS IV PUSH (04:38)
[2020-12-05] MEDS: oxyCODONE HCL (*CRX) 5 MG TAB IR PO (06:39)
[2020-12-05 06:51] LABS: Anion Gap 0 mmol/L (8-16); Blood Urea Nitrogen 4 mg/dL (7-17); Calcium 8.2 mg/dL (8.4-10.2); Carbon Dioxide 37 mmol/L (22-30); Chloride 98 mmol/L (98-107); Estimated CRCL calculation 139 ml/min; Estimated Glomerular Filt Rate > 60; Glucose 115 mg/dL (65-105); Potassium 2.9 mmol/L (3.4-5.0); Sodium 135 mmol/L (137-145)
[2020-12-05] MEDS: AMOXICILLIN/CLAVULANATE K 875-125 MG TAB 1 TABLET PO ×2 (08:43→21:36)
[2020-12-05] MEDS: PREGABALIN (*CRX) 75 MG CAPSULE PO ×2 (08:43→17:06)
[2020-12-05] MEDS: levETIRAcetam 500 MG TABLET PO ×2 (08:43→21:36)
[2020-12-05] MEDS: PANTOPRAZOLE 40 MG TABLET PO (08:43)
[2020-12-05] MEDS: IPRATROPIUM BR 0.02% INH SOLN 0.5 MG/2.5 ML VIAL INHALATION ×3 (09:38→21:26)
[2020-12-05] MEDS: ALBUTEROL SULFATE NEB 2.5 MG/0.5 ML INH INHALATION ×3 (09:38→21:27)
[2020-12-05] MEDS: MAGNESIUM SULF 2 GM/WATER 50ML 2 GM/50 ML BAG IVPB (11:17)
[2020-12-05 12:11] LABS: Partial Thromboplastin Time 123.3 SECONDS (22.3-36.8)
[2020-12-05] MEDS: HEPARIN SOD/D5W 100 UNITS/ML 25,000 UNITS/250 ML BAG 13 UNITS IV CONT (13:00)
--- NOTE | 2020-12-05 13:34 | PM.IMPN ---
Progress Note: A&P Assessment and Plan (1) Pulmonary emboli: Qualifiers: Pulmonary embolism type: multiple subsegmental (without acute cor pulmonale) Qualified Code(s): I26.94 - Multiple subsegmental pulmonary emboli without acute cor pulmonale Code(s): I26.99 - Other pulmonary embolism without acute cor pulmonale Status: Acute Assessment and Plan: Patient presents with hemoptysis and shortness of breath. She was also having pleuritic chest pain. CTA showing right middle lobe and left lower lobe pulmonary emboli. She also has DVTs as mentioned below. She has been started on a heparin drip. She is still having considerable pleuritc pain so oxycodone was advanced. She was also given codeine for her cough p.r.n.. Her hemoptysis has not worsened on the heparin drip. Hemoglobin is stable. Continue to monitor closely for now. (2) Small cell lung cancer: Onset Date: ~06/2020 Code(s): C34.90 - Malignant neoplasm of unspecified part of unspecified bronchus or lung Status: Acute Assessment and Plan: Patient was diagnosed with small cell lung cancer earlier this year. She has undergone prophylactic radiation to the brain. She has been started on chemotherapy. Imaging in October showed improvement. CTA of the chest on admission here unfortunately shows progression. She has dramatically increased right superior mediastinal, paratracheal, precarinal, right perihilar and subcarinal lymphadenopathy since 11/06/2020, with encasement and complete occlusion of the right upper lobe pulmonary artery. She also has patchy infiltrate in the right upper lobe likely secondary to pulmonary infarct. Dr. Nicole has been consulted. Patient was aware of these findings from the emergency department. (3) Chronic respiratory failure with hypoxia, on home O2 therapy: Code(s): J96.11 - Chronic respiratory failure with hypoxia; Z99.81 - Dependence on supplemental oxygen Status: Acute Assessment and Plan: Patient with chronic respiratory failure with hypoxia related to her COPD and lung cancer. ABG on admission shows 7.46/42/85 on 3 L. She is stable on 2 L at this time. Continue to monitor. (4) Chronic obstructive pulmonary disease: Code(s): J44.9 - Chronic obstructive pulmonary disease, unspecified Status: Acute Assessment and Plan: Patient with long history of tobacco use. She has quit tobacco recently. No wheezing appreciated. She stable on her 2 L oxygen. Continue to monitor. (5) Hypokalemia: Code(s): E87.6 - Hypokalemia Status: Acute Assessment and Plan: Potassium 2.3 on admission. This was replaced. Repeat potassium improved to 3.1. Potassium this morning is low again at 2.9. Possibly related to her Lasix. Magnesium was normal at 1.7. Will replace potassium and magnesium today. Repeat levels later today. Continue to replace electrolytes as needed. (6) Obstructive sleep apnea: Code(s): G47.33 - Obstructive sleep apnea (adult) (pediatric) Status: Acute Assessment and Plan: Patient started on noninvasive ventilation on admission. She tolerated it last night. Continue the same. (7) Parotiditis: Code(s): K11.20 - Sialoadenitis, unspecified Status: Acute Assessment and Plan: CT scan of the neck showed left-sided parotiditis. Patient is currently on Augmentin for this. Continue the same. (8) DVT (deep venous thrombosis): Code(s): I82.409 - Acute embolism and thrombosis of unspecified deep veins of unspecified lower extremity Status: Acute Assessment and Plan: Lower extremity venous Doppler showing DVT involving left femoral and popliteal veins with interval improvement compared to Doppler in July. No DVT in the right lower extremity. Subjective Date/time seen: 12/05/20 13:34 Interval history: 55yo female with small cell lung CA here for SOB and hemoptysi
[2020-12-05] MEDS: oxyCODONE HCL (*CRX) 5 MG TAB IR 10 MG PO (15:52)
--- NOTE | 2020-12-05 16:19 | PDONCCN ---
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 She finished radiation therapy to the brain as well. She is currently on maintenance treatment with Tecentriq. She came into the hospital with increasing shortness of breath and midsternal chest pain. Patient also has a history of DVT but discontinued anticoagulation therapy couple of months ago. In the ER CT chest was performed that showed dramatic increase in lymphadenopathy with incasement and complete occlusion right upper lobe pulmonary artery at with well as middle lobe and left lower lobe pulmonary embolism. Patient was started on heparin. Her chest pain and shortness of breath has improved. She denies any fevers and chills. She does have some cough with occasional hemoptysis. Review of Systems - Review of Systems All systems reviewed & are unremarkable except as noted in HPI and bel - Neurologic Reports weakness [facility] Medical History: Medical History (Last Updated 12/04/20 @ 18:54 by Nancy Guillen PA-C) Anxiety Arthritis Chronic obstructive pulmonary disease Chronic respiratory failure with hypoxia, on home O2 therapy 2L during the daytime and 3L at nighttime. COVID-19 Onset Date: 07/2020 Depression Depression with anxiety Gastroesophageal reflux disease Lower extremity deep venous thrombosis Onset Date: 07/2020 Nephrolithiasis Obstructive sleep apnea Osteoarthritis Peripheral neuropathy Pre-diabetes Hemoglobin A1c was 5.3% in April 2020. Shingles Small cell lung cancer Onset Date: ~06/2020 Extensive stage small cell lung cancer arising in the right lung with lung metastases and solitary brain met status post whole-brain radiation per Dr. Cruz. Currently undergoing chemotherapy per Dr. Nicole. Urinary, incontinence, stress female Surgical History: Surgical History (Last Updated 12/04/20 @ 18:29 by Nancy Guillen PA-C) History of appendectomy History of arthroplasty of right knee History of cholecystectomy History of eye surgery Repair of detached right retina. History of hysterectomy History of lumbar surgery History of tonsillectomy History of tubal ligation Family History: Family History (Last Reviewed 12/04/20 @ 18:32 by Nancy Guillen PA-C) Father Hypertension Mother Family history of malignant melanoma Family history of kidney disease Grandparent Diabetes mellitus Other Family history of tuberculosis - Social History Social History: Social History (Last Updated 12/04/20 @ 18:35 by Nancy Guillen PA-C) Gender Identity: Gender identity (if verbalized by the patient): Female Alcohol Use: Alcohol intake: never Substance Use: Substance use: never Substance use type: does not use Others: Spiritual care concerns: No Smoking Status: Smoking status: Former smoker Tobacco type: cigarettes Smoking end date: 11/06/20 Smoking Pack-years: Smoking packs per day: 1 Smoking cigarettes per day: 20.0 Years smoked: 40 Smoking pack-years: 40.00 Meds Home Medications Medication Instructions Recorded Confirmed Type albuterol sulfate 0.63 mg/3 mL 0.63 mg INHALATION Q4-6H PRN #90 ml 07/11/19 12/04/20 Rx solution for nebulization lamotrigine 100 mg PO DAILY 01/19/20 12/04/20 History baclofen 10 mg PO TID PRN 05/11/20 12/04/20 History albuterol sulfate [Proventil HFA] 2 puff INHALATION QID PRN #6.7 g 07/09/20 12/04/20 Rx citalopram 20 mg PO DAILY 08/04/20 12/04/20 History hydroxyzine HCl 25 mg PO TID PRN 08/04/20 12/04/20 History ondansetron 8 mg PO Q6H PRN 08/04/20 12/04/20 Histo
[2020-12-05] MEDS: guaiFENesin/CODEINE (*CRX) 200/20 MG 10 ML SYRUP PO (17:06)
[2020-12-05 17:35] LABS: Magnesium 5.1 mg/dL (1.6-2.3); Potassium 3.5 mmol/L (3.4-5.0)
[2020-12-05 20:53] LABS: Partial Thromboplastin Time 107.5 SECONDS (22.3-36.8)
[2020-12-05] MEDS: ZOLPIDEM TARTRATE (*CRX) 5 MG TABLET 10 MG PO (21:38)
[2020-12-05] MEDS: CITALOPRAM HYDROBROMIDE 20 MG TABLET PO (21:38)
[2020-12-05] MEDS: lamoTRIgine 100 MG TABLET PO (21:39)
[2020-12-05] MEDS: guaiFENesin/DEXTROMETHORPHAN 10 ML UDC PO (21:46)
[2020-12-05] MEDS: PROCHLORPERAZINE MALEATE 5 MG TABLET 10 MG PO (22:33)
[2020-12-06] VITALS (26 sets, daily range): BP systolic 92–122; BP diastolic 56–77; PULSE 69–111; RESP 18–20; TEMP 36.2–36.5; O2SAT 92–99
[2020-12-06] MEDS: PROCHLORPERAZINE MALEATE 5 MG TABLET 10 MG PO (03:25)
[2020-12-06] MEDS: oxyCODONE HCL (*CRX) 5 MG TAB IR 10 MG PO ×3 (03:25→14:47)
[2020-12-06 04:23] LABS: Basophils Percent Auto 0.3 % (0.2-1.2); Eosinophils Percent Auto 0.8 % (0-4.4); Hemoglobin 10.4 g/dL (12.0-15.0); Immature Granulocyte Absolute 0.08 K/mm3 (0.00-0.031); Immature Granulocyte Percent A 0.6 % (0-0.5); Lymphocytes Percent Auto 9.8 % (18.3-44.2); Mean Corpuscular HGB Conc 31.5 g/dl (32-36); Mean Corpuscular Hemoglobin 33.7 pg (26-34); Mean Corpuscular Volume 106.8 fl (80-100); Mean Platelet Volume 10.3 fl (7.4-10.4); Monocytes Percent Auto 7.5 % (2.6-8.5); Neutrophils Absolute Auto 11.6 K/mm3 (1.3-6.7); Platelet Count Result 203 k/mm3 (150-375); Red Blood Count 3.09 M/mm3 (4.2-5.4); Red Cell Distribution Width 15.7 % (11.5-14.5); White Blood Count 14.4 K/mm3 (4.5-10.0)
[2020-12-06 04:24] LABS: Eosinophils Absolute Auto 0.1 K/mm3 (0-0.3); Monocytes Absolute Auto 1.1 K/mm3 (0.1-0.6)
[2020-12-06 04:34] LABS: Albumin Level 3.2 g/dL (3.5-5.1); Anion Gap 1 mmol/L (8-16); Blood Urea Nitrogen 5 mg/dL (7-17); Calcium 8.7 mg/dL (8.4-10.2); Carbon Dioxide 35 mmol/L (22-30); Chloride 98 mmol/L (98-107); Estimated CRCL calculation 115 ml/min; Estimated Glomerular Filt Rate > 60; Glucose 121 mg/dL (65-105); Magnesium 2.1 mg/dL (1.6-2.3); Phosphorus 4.2 mg/dL (2.5-4.5); Potassium 3.3 mmol/L (3.4-5.0); Sodium 134 mmol/L (137-145)
[2020-12-06 04:38] LABS: Partial Thromboplastin Time 95.7 SECONDS (22.3-36.8)
[2020-12-06] MEDS: IPRATROPIUM BR 0.02% INH SOLN 0.5 MG/2.5 ML VIAL INHALATION ×4 (07:50→21:34)
[2020-12-06] MEDS: ALBUTEROL SULFATE NEB 2.5 MG/0.5 ML INH INHALATION ×4 (07:51→21:33)
[2020-12-06] MEDS: guaiFENesin/DEXTROMETHORPHAN 10 ML UDC PO ×3 (09:19→20:59)
[2020-12-06] MEDS: PANTOPRAZOLE 40 MG TABLET PO (09:19)
[2020-12-06] MEDS: PREGABALIN (*CRX) 75 MG CAPSULE PO ×2 (09:20→20:59)
[2020-12-06] MEDS: levETIRAcetam 500 MG TABLET PO ×2 (09:20→20:57)
[2020-12-06] MEDS: AMOXICILLIN/CLAVULANATE K 875-125 MG TAB 1 TABLET PO ×2 (09:20→20:59)
[2020-12-06] MEDS: POTASSIUM CHLORIDE 20 MEQ TABLET 40 MEQ PO (09:20)
[2020-12-06] MEDS: APIXABAN 5 MG TABLET 10 MG PO ×2 (10:29→20:58)
--- NOTE | 2020-12-06 15:24 | PM.IMPN ---
Progress Note: A&P Assessment and Plan (1) Pulmonary emboli: Qualifiers: Pulmonary embolism type: multiple subsegmental (without acute cor pulmonale) Qualified Code(s): I26.94 - Multiple subsegmental pulmonary emboli without acute cor pulmonale Code(s): I26.99 - Other pulmonary embolism without acute cor pulmonale Status: Acute Assessment and Plan: Patient presents with hemoptysis and shortness of breath. She was also having pleuritic chest pain. CTA showing right middle lobe and left lower lobe pulmonary emboli. She also has DVTs as mentioned below. She was started on a heparin drip. She is still having considerable pleuritc pain so oxycodone was advanced. Changed to Eliquis today. May need Coumadin if insurance not willing to pay for Eliquis. Continue to monitor closely for now. (2) Small cell lung cancer: Onset Date: ~06/2020 Code(s): C34.90 - Malignant neoplasm of unspecified part of unspecified bronchus or lung Status: Acute Assessment and Plan: Patient was diagnosed with small cell lung cancer earlier this year. She has undergone prophylactic radiation to the brain. She has been started on chemotherapy. Imaging in October showed improvement. CTA of the chest on admission here unfortunately shows progression. She has dramatically increased right superior mediastinal, paratracheal, precarinal, right perihilar and subcarinal lymphadenopathy since 11/06/2020, with encasement and complete occlusion of the right upper lobe pulmonary artery. She also has patchy infiltrate in the right upper lobe likely secondary to pulmonary infarct. Dr. Nicole has been consulted and his note was reviewed; possible pseudoprogression being on the immunosuppressive therapy vs true progression. Patient was aware of these findings (3) Chronic respiratory failure with hypoxia, on home O2 therapy: Code(s): J96.11 - Chronic respiratory failure with hypoxia; Z99.81 - Dependence on supplemental oxygen Status: Acute Assessment and Plan: Patient with chronic respiratory failure with hypoxia related to her COPD and lung cancer. ABG on admission shows 7.46/42/85 on 3 L. She is stable on home O2 at this time. Continue to monitor. (4) Chronic obstructive pulmonary disease: Code(s): J44.9 - Chronic obstructive pulmonary disease, unspecified Status: Acute Assessment and Plan: Patient with long history of tobacco use. She has quit tobacco recently. No wheezing appreciated. She stable on her home O2. Continue to monitor. (5) Hypokalemia: Code(s): E87.6 - Hypokalemia Status: Acute Assessment and Plan: Potassium 2.3 on admission. This was replaced. Repeat potassium improved. Possibly related to her Lasix. Magnesium 2.1 and potassium 3.3 today. Repat oral potassium repalcement. Continue to replace electrolytes as needed. (6) Obstructive sleep apnea: Code(s): G47.33 - Obstructive sleep apnea (adult) (pediatric) Status: Acute Assessment and Plan: Patient started on noninvasive ventilation on admission. She tolerated it last night. Continue the same. (7) Parotiditis: Code(s): K11.20 - Sialoadenitis, unspecified Status: Acute Assessment and Plan: CT scan of the neck in September showed left-sided parotiditis. Patient was treated with Augmentin and finished a course. She had recurent symptoms and saw Dr Nicole who resumed the Augmentin. She was only on the Augmentin for 1-2 days before being admitted. Continue the same. (8) DVT (deep venous thrombosis): Code(s): I82.409 - Acute embolism and thrombosis of unspecified deep veins of unspecified lower extremity Status: Acute Assessment and Plan: Lower extremity venous Doppler showing DVT involving left femoral and popliteal veins with interval improvement compared to Doppler in July. No DVT in the right lower extremity. Treatm
[2020-12-06] MEDS: MORPHINE SULFATE (*CRX) 2 MG/ML INJ IV PUSH (20:56)
[2020-12-06] MEDS: CITALOPRAM HYDROBROMIDE 20 MG TABLET PO (20:58)
[2020-12-06] MEDS: lamoTRIgine 100 MG TABLET PO (20:58)
[2020-12-06] MEDS: ZOLPIDEM TARTRATE (*CRX) 5 MG TABLET 10 MG PO (20:59)
[2020-12-07] VITALS (24 sets, daily range): BP systolic 98–121; BP diastolic 55–75; PULSE 91–112; RESP 18–24; TEMP 35.8–37.1; O2SAT 90–100
[2020-12-07] MEDS: guaiFENesin/DEXTROMETHORPHAN 10 ML UDC PO ×5 (04:19→20:24)
[2020-12-07] MEDS: oxyCODONE HCL (*CRX) 5 MG TAB IR 10 MG PO ×3 (04:20→18:26)
[2020-12-07 04:36] LABS: Basophils Percent Auto 0.3 % (0.2-1.2); Eosinophils Absolute Auto 0.2 K/mm3 (0-0.3); Eosinophils Percent Auto 1.1 % (0-4.4); Hematocrit 33.5 % (37.0-47.0); Hemoglobin 10.4 g/dL (12.0-15.0); Immature Granulocyte Absolute 0.08 K/mm3 (0.00-0.031); Immature Granulocyte Percent A 0.6 % (0-0.5); Lymphocytes Absolute Auto 1.54 K/mm3 (0.9-3.2); Lymphocytes Percent Auto 10.9 % (18.3-44.2); Mean Corpuscular Hemoglobin 33.1 pg (26-34); Mean Corpuscular Volume 106.7 fl (80-100); Mean Platelet Volume 10.2 fl (7.4-10.4); Monocytes Absolute Auto 1.1 K/mm3 (0.1-0.6); Monocytes Percent Auto 8.1 % (2.6-8.5); Neutrophils Absolute Auto 11.1 K/mm3 (1.3-6.7); Platelet Count Result 198 k/mm3 (150-375); Red Blood Count 3.14 M/mm3 (4.2-5.4); Red Cell Distribution Width 15.9 % (11.5-14.5); White Blood Count 14.1 K/mm3 (4.5-10.0)
[2020-12-07 04:50] LABS: Anion Gap 3 mmol/L (8-16); Blood Urea Nitrogen 6 mg/dL (7-17); Carbon Dioxide 32 mmol/L (22-30); Chloride 100 mmol/L (98-107); Estimated CRCL calculation 139 ml/min; Estimated Glomerular Filt Rate > 60; Glucose 118 mg/dL (65-105); Magnesium 1.9 mg/dL (1.6-2.3); Potassium 4.2 mmol/L (3.4-5.0); Sodium 135 mmol/L (137-145)
[2020-12-07] MEDS: ALBUTEROL SULFATE NEB 2.5 MG/0.5 ML INH INHALATION ×4 (08:52→20:40)
[2020-12-07] MEDS: IPRATROPIUM BR 0.02% INH SOLN 0.5 MG/2.5 ML VIAL INHALATION ×4 (08:53→20:40)
[2020-12-07] MEDS: MORPHINE SULFATE (*CRX) 2 MG/ML INJ IV PUSH ×2 (09:05→15:15)
[2020-12-07] MEDS: PREGABALIN (*CRX) 75 MG CAPSULE PO ×2 (09:08→18:27)
[2020-12-07] MEDS: levETIRAcetam 500 MG TABLET PO ×2 (09:08→20:25)
[2020-12-07] MEDS: PANTOPRAZOLE 40 MG TABLET PO (09:08)
[2020-12-07] MEDS: APIXABAN 5 MG TABLET 10 MG PO ×2 (09:08→20:24)
[2020-12-07] MEDS: AMOXICILLIN/CLAVULANATE K 875-125 MG TAB 1 TABLET PO ×2 (09:08→20:25)
[2020-12-07] MEDS: PROCHLORPERAZINE MALEATE 5 MG TABLET 10 MG PO (12:58)
[2020-12-07] MEDS: BISACODYL 5 MG TABLET EC PO (13:43)
--- NOTE | 2020-12-07 17:39 | PM.IMPN ---
Progress Note: A&P Assessment and Plan (1) Pulmonary emboli: Qualifiers: Pulmonary embolism type: multiple subsegmental (without acute cor pulmonale) Qualified Code(s): I26.94 - Multiple subsegmental pulmonary emboli without acute cor pulmonale Code(s): I26.99 - Other pulmonary embolism without acute cor pulmonale Status: Acute Assessment and Plan: Patient presents with hemoptysis and shortness of breath. She was also having pleuritic chest pain. CTA showing right middle lobe and left lower lobe pulmonary emboli. She also has DVTs as mentioned below. She was started on a heparin drip. She is still having considerable pleuritc pain so oxycodone was advanced. Changed to Eliquis yesterday. Able to have insurance authorization for the ELiquis. She does not feel well with the vomiting so lubna monitor overnight. Possibly home tomorrow. Continue to monitor closely for now. (2) Small cell lung cancer: Onset Date: ~06/2020 Code(s): C34.90 - Malignant neoplasm of unspecified part of unspecified bronchus or lung Status: Acute Assessment and Plan: Patient was diagnosed with small cell lung cancer earlier this year. She has undergone prophylactic radiation to the brain. She has been started on chemotherapy. Imaging in October showed improvement. CTA of the chest on admission here unfortunately shows progression. She has dramatically increased right superior mediastinal, paratracheal, precarinal, right perihilar and subcarinal lymphadenopathy since 11/06/2020, with encasement and complete occlusion of the right upper lobe pulmonary artery. She also has patchy infiltrate in the right upper lobe likely secondary to pulmonary infarct. Dr. Nicole has been consulted and his note was reviewed; possible pseudoprogression being on the immunosuppressive therapy vs true progression. Patient was aware of these findings. Patient to follow up with Dr Nicole after discharge. (3) Chronic respiratory failure with hypoxia, on home O2 therapy: Code(s): J96.11 - Chronic respiratory failure with hypoxia; Z99.81 - Dependence on supplemental oxygen Status: Acute Assessment and Plan: Patient with chronic respiratory failure with hypoxia related to her COPD and lung cancer. ABG on admission shows 7.46/42/85 on 3 L. She is stable on home O2 at this time. Continue to monitor. (4) Chronic obstructive pulmonary disease: Code(s): J44.9 - Chronic obstructive pulmonary disease, unspecified Status: Acute Assessment and Plan: Patient with long history of tobacco use. She has quit tobacco recently. No wheezing appreciated. She stable on her home O2. Continue to monitor. (5) Hypokalemia: Code(s): E87.6 - Hypokalemia Status: Acute Assessment and Plan: Potassium 2.3 on admission. This was replaced. Repeat potassium improved. Possibly related to her Lasix. Potassium 4.2 and Magnesium 1.9 today. Continue to monitor and replace electrolytes as needed. (6) Obstructive sleep apnea: Code(s): G47.33 - Obstructive sleep apnea (adult) (pediatric) Status: Acute Assessment and Plan: Patient continued on noninvasive ventilation on admission. She tolerated it last night. Continue the same. (7) Parotiditis: Code(s): K11.20 - Sialoadenitis, unspecified Status: Acute Assessment and Plan: CT scan of the neck in September showed left-sided parotiditis. Patient was treated with Augmentin and finished a course. She had recurrent symptoms and saw Dr Nicole who resumed the Augmentin. She was only on the Augmentin for 1-2 days before being admitted. Augmentin Resumed here. Continue the same. (8) DVT (deep venous thrombosis): Code(s): I82.409 - Acute embolism and thrombosis of unspecified deep veins of unspecified lower extremity Status: Acute Assessment and Plan: Lower extremity venous Doppler showing
[2020-12-07] MEDS: CITALOPRAM HYDROBROMIDE 20 MG TABLET PO (20:25)
[2020-12-07] MEDS: lamoTRIgine 100 MG TABLET PO (20:25)
[2020-12-07] MEDS: ZOLPIDEM TARTRATE (*CRX) 5 MG TABLET 10 MG PO (20:27)
[2020-12-07] MEDS: guaiFENesin 12 HR 600 MG TABCR 1200 MG PO (20:27)
[2020-12-07] MEDS: WATER FOR IRRIGATION, STERILE 1,000 ML BOTTLE 1000 ML (22:16)
[2020-12-08] VITALS (25 sets, daily range): BP systolic 90–110; BP diastolic 40–79; PULSE 75–119; RESP 16–22; TEMP 35.5–36.6; O2SAT 90–99
[2020-12-08] MEDS: ALBUTEROL SULFATE (*SP) AEROSOL 1 PUFF 2 PUFF INHALATION (06:32)
[2020-12-08] MEDS: oxyCODONE HCL (*CRX) 5 MG TAB IR 10 MG PO ×3 (06:45→21:16)
[2020-12-08 07:02] LABS: Hematocrit 31.4 % (37.0-47.0); Hemoglobin 9.9 g/dL (12.0-15.0); Mean Corpuscular HGB Conc 31.5 g/dl (32-36); Mean Corpuscular Hemoglobin 32.6 pg (26-34); Mean Corpuscular Volume 103.3 fl (80-100); Mean Platelet Volume 10.7 fl (7.4-10.4); Platelet Count Result 228 k/mm3 (150-375); Red Blood Count 3.04 M/mm3 (4.2-5.4); Red Cell Distribution Width 15.9 % (11.5-14.5); White Blood Count 14.8 K/mm3 (4.5-10.0)
[2020-12-08 07:29] LABS: Anion Gap 2 mmol/L (8-16); Blood Urea Nitrogen 6 mg/dL (7-17); Carbon Dioxide 30 mmol/L (22-30); Chloride 102 mmol/L (98-107); Estimated CRCL calculation 140 ml/min; Estimated Glomerular Filt Rate > 60; Glucose 109 mg/dL (65-105); Potassium 4.5 mmol/L (3.4-5.0); Sodium 134 mmol/L (137-145)
[2020-12-08] MEDS: IPRATROPIUM BR 0.02% INH SOLN 0.5 MG/2.5 ML VIAL INHALATION ×3 (08:13→19:50)
[2020-12-08] MEDS: ALBUTEROL SULFATE NEB 2.5 MG/0.5 ML INH INHALATION ×3 (08:14→19:49)
[2020-12-08] MEDS: MORPHINE SULFATE (*CRX) 2 MG/ML INJ IV PUSH (08:49)
[2020-12-08] MEDS: PROCHLORPERAZINE MALEATE 5 MG TABLET 10 MG PO (08:49)
[2020-12-08] MEDS: AMOXICILLIN/CLAVULANATE K 875-125 MG TAB 1 TABLET PO ×2 (08:50→20:20)
[2020-12-08] MEDS: APIXABAN 5 MG TABLET 10 MG PO ×2 (08:50→20:20)
[2020-12-08] MEDS: guaiFENesin 12 HR 600 MG TABCR 1200 MG PO (08:51)
[2020-12-08] MEDS: PREGABALIN (*CRX) 75 MG CAPSULE PO ×2 (08:51→17:01)
[2020-12-08] MEDS: levETIRAcetam 500 MG TABLET PO ×2 (08:51→20:20)
[2020-12-08] MEDS: PANTOPRAZOLE 40 MG TABLET PO (08:52)
--- NOTE | 2020-12-08 09:56 | PM.IMPN ---
Progress Note: A&P Assessment and Plan (1) Pulmonary emboli: Qualifiers: Pulmonary embolism type: multiple subsegmental (without acute cor pulmonale) Qualified Code(s): I26.94 - Multiple subsegmental pulmonary emboli without acute cor pulmonale Code(s): I26.99 - Other pulmonary embolism without acute cor pulmonale Status: Acute Assessment and Plan: Patient presents with hemoptysis and shortness of breath. She was also having pleuritic chest pain. CTA showing right middle lobe and left lower lobe pulmonary emboli. She also has DVTs as mentioned below. She was started on a heparin drip but changed to Eliquis. Eliquis has been approved. She is still having pleuritic pain and cough. having hallucination at night. Doubt related to cancer since she has had XRT to the brain. She is taking the Oxycodone 10mg TID regularly and Morphine 1-4x/day. Doubt related to Ambien. Resume Robitussin with codeine and back off on narcotics. (2) Small cell lung cancer: Onset Date: ~06/2020 Code(s): C34.90 - Malignant neoplasm of unspecified part of unspecified bronchus or lung Status: Acute Assessment and Plan: Patient was diagnosed with small cell lung cancer earlier this year. She has undergone prophylactic radiation to the brain. She has been started on chemotherapy. Imaging in October showed improvement. CTA of the chest on admission here unfortunately shows progression. She has dramatically increased right superior mediastinal, paratracheal, precarinal, right perihilar and subcarinal lymphadenopathy since 11/06/2020, with encasement and complete occlusion of the right upper lobe pulmonary artery. She also has patchy infiltrate in the right upper lobe likely secondary to pulmonary infarct. Dr. Nicole has been consulted and his note was reviewed; possible pseudoprogression being on the immunosuppressive therapy vs true progression. Patient was aware of these findings. Patient to follow up with Dr Nicole after discharge. (3) Chronic respiratory failure with hypoxia, on home O2 therapy: Code(s): J96.11 - Chronic respiratory failure with hypoxia; Z99.81 - Dependence on supplemental oxygen Status: Acute Assessment and Plan: Patient with chronic respiratory failure with hypoxia related to her COPD and lung cancer. ABG on admission shows 7.46/42/85 on 3 L. She is stable on home O2 at this time. Continue to monitor. (4) Chronic obstructive pulmonary disease: Code(s): J44.9 - Chronic obstructive pulmonary disease, unspecified Status: Acute Assessment and Plan: Patient with long history of tobacco use. She has quit tobacco recently. No wheezing appreciated. She stable on her home O2. Continue to monitor. (5) Hypokalemia: Code(s): E87.6 - Hypokalemia Status: Acute Assessment and Plan: Potassium 2.3 on admission. This was replaced. Repeat potassium improved. Possibly related to her Lasix. Potassium 4.5 and Magnesium 1.9 today. Continue to monitor and replace electrolytes as needed. Resume Lasix since she feels edematous. (6) Obstructive sleep apnea: Code(s): G47.33 - Obstructive sleep apnea (adult) (pediatric) Status: Acute Assessment and Plan: Patient continued on noninvasive ventilation on admission. She tolerated it somewhat last night. Continue the same. (7) Parotiditis: Code(s): K11.20 - Sialoadenitis, unspecified Status: Acute Assessment and Plan: CT scan of the neck in September showed left-sided parotiditis. Patient was treated with Augmentin and finished a course. She had recurrent symptoms and saw Dr Nicole who resumed the Augmentin. She was only on the Augmentin for 1-2 days before being admitted. Augmentin resumed here. Continue the same. (8) DVT (deep venous thrombosis): Code(s): I82.409 - Acute embolism and thrombosis of unspecified deep veins of unspecifi
--- NOTE | 2020-12-08 11:36 | PCOTNOTE ---
Attempted to see patient for OT, patient stated I don't want to do any moving...that's when I get sick. Patient declined all other interventions, and asked to wait till tomorrow. Will continue plan of care tomorrow, 12/09/20.
[2020-12-08] MEDS: FUROSEMIDE 20 MG TABLET PO (12:12)
[2020-12-08] MEDS: guaiFENesin/CODEINE (*CRX) 200/20 MG 10 ML SYRUP PO ×3 (12:12→21:26)
[2020-12-08] MEDS: hydrOXYzine HCL 25 MG TABLET PO (14:33)
[2020-12-08] MEDS: ACETAMINOPHEN 325 MG TABLET 650 MG PO (14:34)
--- NOTE | 2020-12-08 15:29 | PCPTNOTE ---
Attempted to see pt for PT session on two occasions on this date. Initially attempted at approx 11 am, but pt declined participation due to fear of increased nausea and vomiting with any movement. Attempted again at 2:30 pm and pt was tearful and anxious with RN present for pt care. Pt declined participation and requests therapist to hold off today and return tomorrow.
[2020-12-08] MEDS: lamoTRIgine 100 MG TABLET PO (20:20)
[2020-12-08] MEDS: CITALOPRAM HYDROBROMIDE 20 MG TABLET PO (20:21)
[2020-12-08] MEDS: ZOLPIDEM TARTRATE (*CRX) 5 MG TABLET 10 MG PO (20:21)
[2020-12-09] VITALS (12 sets, daily range): BP systolic 94–114; BP diastolic 57–65; PULSE 78–110; RESP 12–120; TEMP 36.3–37; O2SAT 90–98
[2020-12-09] MEDS: guaiFENesin/CODEINE (*CRX) 200/20 MG 10 ML SYRUP PO ×2 (04:56→14:09)
[2020-12-09] MEDS: oxyCODONE HCL (*CRX) 5 MG TAB IR 10 MG PO (04:58)
[2020-12-09] MEDS: PROCHLORPERAZINE MALEATE 5 MG TABLET 10 MG PO (05:14)
[2020-12-09 05:47] LABS: Hematocrit 31.9 % (37.0-47.0); Hemoglobin 9.9 g/dL (12.0-15.0); Mean Corpuscular Hemoglobin 33.3 pg (26-34); Mean Corpuscular Volume 107.4 fl (80-100); Mean Platelet Volume 10.8 fl (7.4-10.4); Platelet Count Result 215 k/mm3 (150-375); Red Blood Count 2.97 M/mm3 (4.2-5.4); White Blood Count 11.5 K/mm3 (4.5-10.0)
[2020-12-09 05:57] LABS: Anion Gap 2 mmol/L (8-16); Blood Urea Nitrogen 6 mg/dL (7-17); Calcium 8.6 mg/dL (8.4-10.2); Carbon Dioxide 31 mmol/L (22-30); Chloride 104 mmol/L (98-107); Estimated CRCL calculation 138 ml/min; Estimated Glomerular Filt Rate > 60; Glucose 98 mg/dL (65-105); Potassium 3.9 mmol/L (3.4-5.0); Sodium 137 mmol/L (137-145)
[2020-12-09] MEDS: levETIRAcetam 500 MG TABLET PO (08:26)
[2020-12-09] MEDS: PREGABALIN (*CRX) 75 MG CAPSULE PO (08:26)
[2020-12-09] MEDS: FUROSEMIDE 20 MG TABLET PO (08:27)
[2020-12-09] MEDS: APIXABAN 5 MG TABLET 10 MG PO (08:27)
[2020-12-09] MEDS: PANTOPRAZOLE 40 MG TABLET PO (08:27)
[2020-12-09] MEDS: AMOXICILLIN/CLAVULANATE K 875-125 MG TAB 1 TABLET PO (08:28)
[2020-12-09] MEDS: ALBUTEROL SULFATE NEB 2.5 MG/0.5 ML INH INHALATION ×2 (08:37→12:24)
[2020-12-09] MEDS: IPRATROPIUM BR 0.02% INH SOLN 0.5 MG/2.5 ML VIAL INHALATION ×2 (08:37→12:23)
[2020-12-09] MEDS: CENTRAL LINE FLUSH 10 ML IV PUSH (13:00)
--- NOTE | 2020-12-09 13:20 | PM.DS ---
DS: Admitting Diagnosis Admitting Diagnosis Admitting Diagnosis: Hemoptysis and shortness of breath DS: Discharge Diagnosis Discharge Diagnosis (1) Pulmonary emboli: Qualifiers: Pulmonary embolism type: multiple subsegmental (without acute cor pulmonale) Qualified Code(s): I26.94 - Multiple subsegmental pulmonary emboli without acute cor pulmonale Code(s): I26.99 - Other pulmonary embolism without acute cor pulmonale Status: Acute Assessment and Plan: Patient presents with hemoptysis and shortness of breath. She was also having pleuritic chest pain. CTA showed right middle lobe and left lower lobe pulmonary emboli. She also had DVTs as mentioned below. She was started on a heparin drip but changed to Eliquis. Eliquis has been approved. She developed hallucination one night felt related to narcotics. Mediations were adjusted and symptom did not recur. Hemoptysis related to PE and her resolved. (2) Small cell lung cancer: Onset Date: ~06/2020 Code(s): C34.90 - Malignant neoplasm of unspecified part of unspecified bronchus or lung Status: Acute Assessment and Plan: Patient was diagnosed with small cell lung cancer. She has undergone prophylactic radiation to the brain. She has been started on chemotherapy. Imaging in October showed improvement. CTA of the chest on this admission unfortunately shows progression. She has dramatically increased right superior mediastinal, paratracheal, precarinal, right perihilar and subcarinal lymphadenopathy since 11/06/2020, with encasement and complete occlusion of the right upper lobe pulmonary artery. She also has patchy infiltrate in the right upper lobe likely secondary to pulmonary infarct. Dr. Nicole was consulted and his note was reviewed; possible pseudoprogression being on the immunosuppressive therapy vs true progression. Patient was aware of these findings. Patient to follow up with Dr Nicole after discharge and she has an appointment next week. (3) Chronic respiratory failure with hypoxia, on home O2 therapy: Code(s): J96.11 - Chronic respiratory failure with hypoxia; Z99.81 - Dependence on supplemental oxygen Status: Acute Assessment and Plan: Patient with chronic respiratory failure with hypoxia related to her COPD and lung cancer. ABG on admission shows 7.46/42/85 on 3 L. She remained stable on home O2 at this time. (4) Chronic obstructive pulmonary disease: Code(s): J44.9 - Chronic obstructive pulmonary disease, unspecified Status: Acute Assessment and Plan: Patient with long history of tobacco use. She has quit tobacco recently. No wheezing appreciated. She remained stable on her home O2. (5) Hypokalemia: Code(s): E87.6 - Hypokalemia Status: Acute Assessment and Plan: Potassium 2.3 on admission. This was replaced. Repeat potassium okay. Possibly related to her Lasix. (6) Obstructive sleep apnea: Code(s): G47.33 - Obstructive sleep apnea (adult) (pediatric) Status: Acute Assessment and Plan: Patient continued on noninvasive ventilation on admission. She tolerated it well (7) Parotiditis: Code(s): K11.20 - Sialoadenitis, unspecified Status: Acute Assessment and Plan: CT scan of the neck in September showed left-sided parotiditis. Patient was treated with Augmentin and finished a course. She had recurrent symptoms and saw Dr Nicole who resumed the Augmentin. She was only on the Augmentin for 1-2 days before being admitted. Augmentin was resumed here. Continue after discharge (8) DVT (deep venous thrombosis): Code(s): I82.409 - Acute embolism and thrombosis of unspecified deep veins of unspecified lower extremity Status: Acute Assessment and Plan: Lower extremity venous Doppler showing DVT involving left femoral and popliteal veins with interval improvement compared to Doppler in
--- NOTE | 2020-12-09 14:51 | PCPTNOTE ---
The PT treatment was unable to be completed today. Attempted treatment twice in AM, patient refused. Patient in dialysis this PM. Will continue per Plan of Care frequency and duration.
== END 2020-12-09 14:32 | disposition home or self-care (01) | DRG 134 ==
LOC: ANHED 13:00 → ANHIMU 16:20
PROVIDERS: Family Medicine; Internal Medicine; Physician Assistant; Admitting Provider Internal Medicine; Emergency Provider Emergency Medicine; PCP Nurse Practitioner Adult Health; Visit Provider Internal Medicine
DX: I26.94 Multiple subsegmental thrombotic pulmonary emboli without acute cor pulmonale (principal); C34.90 Malignant neoplasm of unspecified part of unspecified bronchus or lung; J96.11 Chronic respiratory failure with hypoxia; C79.31 Secondary malignant neoplasm of brain; Z99.81 Dependence on supplemental oxygen; I82.492 Acute embolism and thrombosis of other specified deep vein of left lower extremity; J44.9 Chronic obstructive pulmonary disease, unspecified; E87.6 Hypokalemia; D72.829 Elevated white blood cell count, unspecified; R73.03 Prediabetes; G47.33 Obstructive sleep apnea (adult) (pediatric); K11.20 Sialoadenitis, unspecified; F41.8 Other specified anxiety disorders; K21.9 Gastro-esophageal reflux disease without esophagitis; N39.3 Stress incontinence (female) (male); G62.9 Polyneuropathy, unspecified; Z79.899 Other long term (current) drug therapy; Z86.16 Personal history of COVID-19
CPT/HCPCS: 36415; 36600; 71275; 80048; 80053; 80069; 82375; 82607; 82805; 83050; 83735; 83880; 84132; 84484; 85025; 85027; 85610; 85730; 93005; 93970; 94640; 96361; 96374; 96375; 97162; 97165; 99291; A9270; J1644; J2270; J2405; J3010; J3475; J3480; J7030; J7120; Q9967